=== PATIENT | male | born 1955 | race Caucasian/White ===

== ENCOUNTER 2017-08-08 18:56 | Inpatient (IN) | payer MEDICARE, MEDICAID ==
[~2017-08-08] VITALS: Ht 182.9 cm; Wt 76.4 kg
[~2017-08-08 18:56] MED LIST: MEDROL 4MG. DOSE4 MG PO; NAPROSYN500 M1 PO; NOMEDS; PHENERGAN 25MG.25 M1 PO
[2017-08-08 19:12] VITALS: BP 157/109
--- NOTE | 2017-08-08 19:40 | Emergency Room Report ---
History of Present Illness Time Seen by Armond Presenting Problem in Triage Pt arrived:Walked Presenting Problem:buring garbage this past monday and inhaled smoke, got chest pains at that time. dizziness, nausea and clamminess episodes since then has had 3 episodes of dizziness today. 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 N Clinical Suspician of Infection? N Mental Status: 1 - Regular (Normal Baseline) Sepsis Risk:Low Sepsis Risk Have you (or family members/close friends) recently traveled outside the [place]? N If Yes, where/when: Have you had exposure to infectious disease within the past month? N TB? Other? Specify: Source patient, RN notes reviewed Exam Limitations no limitations Comment Pt comes to the ED with the history of burning brush on Monday and started having severe chest pain and broke out with sweat. Comes to the ED now with what appears to be a completed Inferior [place] with ST elevation in !!, !!!, and AVF with large q waves as well. He has had several episodes of dizziness over the weekend but no black out spells. He denies chest pain at this time. He smokes 1 ppd Cardiac Chest Pain Chest pain indicative of cardiac Yes ALLERGIES Coded Allergies: No Known Allergies (04/16/17) Home Medications Active Scripts Promethazine Hydrochloride (Phenergan 25MG Tab) 25 MG PO Q4-6H PRN #12 Prov: 10/23/11 Naproxen (Naprosyn 500MG Tab) 500 MG PO BID #30 TAB Prov: 04/16/17 Methylprednisolone (Medrol Dose Francesco) 4 MG PO UD #1 FRANCESCO Prov: 04/16/17 Reported Medications No Home Medications (NO HOME MEDICATIONS) History Medical History General CAD? No Angina: No [place]: No Hypertension? No Hyperlipidemia? No CHF? No DVT? No PE? No COPD? No Asthma? No Anemia? No GERD? No Gastric ulcers? No GI Bleed? No Hernia? No Thyroid Problems? No Hypothyroidism? No CVA? No Seizures? No Diabetes? No Renal Insuffiency? No End Stage Renal Disease? No UTI? No Stones? No BPH? No GB Disease: No Nephritic Syndrome? No Asplenia? No Hepatitis? No Sickle Cell Disease? No Arthritis? No Migraines? No Cataracts? No Glaucoma? No MRSA? No HIV? No TB? No Anxiety? No Depression? No Cancer? No Immunization Hx Ped.Immunizations UTD No DT/Tetanus NOT SURE Surgical Hx Previous Surgery?Y NECK X 2 R ANKLE Social History Smoking Hx Smoker: Current Every Day Smoker Tobacco: Yes Type Cigarettes Packs/day < 1 Pack Alcohol Alcohol: No Review of Systems All Other Systems Reviewed and Negative Constitutional see HPI Cardiovascular see HPI Psychiatric/Neurological see HPI Physical Exam Vital Signs Vital Signs Date Time Temp Pulse Resp B/P Pulse O2 O2 Flow FiO2 Ox Delivery Rate 08/08 1912 99.0 86 28 157/109 96 General Appearance normal appearance, WD/WN, mild distress Neck no bruits heard by me Respiratory Status No: respiratory distress. Lung Sounds bilateral: rhonchi. 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 No Results/Orders Laboratory Tests 08/08/171929: Creatine Kinase Pending, CK-MB (CK-2) Rel Index Pending, CK and CKMB Interp Pending, Troponin I Pending Current Medication Orders Sig/Alex Start time Last Medication Dose Route Stop Time Status Admin Heparin Sodium 7,000 UNITS ONCE ONE 08/08 1945 AC (Porcine) IV 08/08 1946 Heparin Sodium/ 500 ML ONCE ONE 08/08 1945 AC Dextrose IV 08/09 1634 Aspirin 324 MG ONCE ONE 08/08 1930 DC PO 08/08 1931 Heparin Sodium 0 .STK-MED ONE 08/08 1930 DC (Porcine) .ROUTE Heparin Sodium/ 500 ML .STK-MED ONE 08/08 1930 DC Dextrose IV Metoprolol Tartrate 5 MG ONCE ONE 08/08 1930 CAN IV 08/08 1931 Prasugrel 60 MG ONCE ONE 08/08 1930 DC PO 08/08 1931 Metoprolol Tartrate 0 .STK-MED ONE 08/08 1925 DC IV Aspirin 0 .STK-MED ONE 08/08 1922 DC .ROUTE Prasugrel 0 .STK-MED ONE 08/08 1922 DC PO Orders Procedure Date/time Status CHEST-PORTABLE 08/08 1934 Active ELECTROCARDIOGRAM REQUEST 08/08 1922 Active CARDIAC ENZYMES 08/08 1922 Active 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 Naidu by Dr. Flores with consult to Dr. Robles Discharge Counseling Counseled pt/family regarding diagnosis, test results, R/B of controlled subst., medications/RX, follow up needs ED Critical Care Critical Care Yes Time spent 30-74 min Vital system(s) involved: Circulatory Failure I was present at bedside for Coordinating pt's care, Interpreting EKGs/Strips , During my initial exam, Reviewing old records, Discussing pt condition, For re -examinations If Critical Care minutes are documented, the time involved in the performance of seperately reportable procedures was not counted toward critical care time documented. I directly delivered medical care to this critically ill and/or injured patient. Timely evaluation and treatment was necessary to address the significant organ system(s) dysfunction present in this patient. at 1940
--- NOTE | 2017-08-08 19:40 | Emergency Room Report ---
History of Present Illness Time Seen by Armond Presenting Problem in Triage Pt arrived:Walked Presenting Problem:buring garbage this past monday and inhaled smoke, got chest pains at that time. dizziness, nausea and clamminess episodes since then has had 3 episodes of dizziness today. 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 N Clinical Suspician of Infection? N Mental Status: 1 - Regular (Normal Baseline) Sepsis Risk:Low Sepsis Risk Have you (or family members/close friends) recently traveled outside the [place]? N If Yes, where/when: Have you had exposure to infectious disease within the past month? N TB? Other? Specify: Source patient, RN notes reviewed Exam Limitations no limitations Comment Pt comes to the ED with the history of burning brush on Monday and started having severe chest pain and broke out with sweat. Comes to the ED now with what appears to be a completed Inferior [place] with ST elevation in !!, !!!, and AVF with large q waves as well. He has had several episodes of dizziness over the weekend but no black out spells. He denies chest pain at this time. He smokes 1 ppd Cardiac Chest Pain Chest pain indicative of cardiac Yes ALLERGIES Coded Allergies: No Known Allergies (04/16/17) Home Medications Active Scripts Promethazine Hydrochloride (Phenergan 25MG Tab) 25 MG PO Q4-6H PRN #12 Prov: 10/23/11 Naproxen (Naprosyn 500MG Tab) 500 MG PO BID #30 TAB Prov: 04/16/17 Methylprednisolone (Medrol Dose Francesco) 4 MG PO UD #1 FRANCESCO Prov: 04/16/17 Reported Medications No Home Medications (NO HOME MEDICATIONS) History Medical History General CAD? No Angina: No [place]: No Hypertension? No Hyperlipidemia? No CHF? No DVT? No PE? No COPD? No Asthma? No Anemia? No GERD? No Gastric ulcers? No GI Bleed? No Hernia? No Thyroid Problems? No Hypothyroidism? No CVA? No Seizures? No Diabetes? No Renal Insuffiency? No End Stage Renal Disease? No UTI? No Stones? No BPH? No GB Disease: No Nephritic Syndrome? No Asplenia? No Hepatitis? No Sickle Cell Disease? No Arthritis? No Migraines? No Cataracts? No Glaucoma? No MRSA? No HIV? No TB? No Anxiety? No Depression? No Cancer? No Immunization Hx Ped.Immunizations UTD No DT/Tetanus NOT SURE Surgical Hx Previous Surgery?Y NECK X 2 R ANKLE Social History Smoking Hx Smoker: Current Every Day Smoker Tobacco: Yes Type Cigarettes Packs/day < 1 Pack Alcohol Alcohol: No Review of Systems All Other Systems Reviewed and Negative Constitutional see HPI Cardiovascular see HPI Psychiatric/Neurological see HPI Physical Exam Vital Signs Vital Signs Date Time Temp Pulse Resp B/P Pulse O2 O2 Flow FiO2 Ox Delivery Rate 08/08 1912 99.0 86 28 157/109 96 General Appearance normal appearance, WD/WN, mild distress Neck no bruits heard by me Respiratory Status No: respiratory distress. Lung Sounds bilateral: rhonchi. 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 No Results/Orders Laboratory Tests 08/08/171929: Creatine Kinase Pending, CK-MB (CK-2) Rel Index Pending, CK and CKMB Interp Pending, Troponin I Pending Current Medication Orders Sig/Alex Start time Last Medication Dose Route Stop Time Status Admin Heparin Sodium 7,000 UNITS ONCE ONE 08/08 1945 AC (Porcine) IV 08/08 1946 Heparin Sodium/ 500 ML ONCE ONE 08/08 1945 AC Dextrose IV 08/09 1634 Aspirin 324 MG ONCE ONE 08/08 1930 DC PO 08/08 1931 Heparin Sodium 0 .STK-MED ONE 08/08 1930 DC (Porcine) .ROUTE Heparin Sodium/ 500 ML .STK-MED ONE 08/08 1930 DC Dextrose IV Metoprolol Tartrate 5 MG ONCE ONE 08/08 1930 CAN IV 08/08 1931 Prasugrel 60 MG ONCE ONE 08/08 1930 DC PO 08/08 1931 Metoprolol Tartrate 0 .STK-MED ONE 08/08 1925 DC IV Aspirin 0 .STK-MED ONE 08/08 1922 DC .ROUTE Prasugrel 0 .STK-MED ONE 08/08 1922 DC PO Orders Procedure Date/time Status CHEST-PORTABLE 08/08 1934 Active ELECTROCARDIOGRAM REQUEST 08/08 1922 Active CARDIAC ENZYMES 08/08 1922 Active 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 Naidu by Dr. Flores with consult to Dr. Robles Discharge Counseling Counseled pt/family regarding diagnosis, test results, R/B of controlled subst., medications/RX, follow up needs ED Critical Care Critical Care Yes Time spent 30-74 min Vital system(s) involved: Circulatory Failure I was present at bedside for Coordinating pt's care, Interpreting EKGs/Strips , During my initial exam, Reviewing old records, Discussing pt condition, For re -examinations If Critical Care minutes are documented, the time involved in the performance of seperately reportable procedures was not counted toward critical care time documented. I directly delivered medical care to this critically ill and/or injured patient. Timely evaluation and treatment was necessary to address the significant organ system(s) dysfunction present in this patient. at 1940
--- NOTE | 2017-08-08 19:43 | Emergency Room Report ---
History of Present Illness Time Seen by 1929 Presenting Problem in Triage Pt arrived:Walked Presenting Problem:buring garbage this past monday and inhaled smoke, got chest pains at that time. dizziness, nausea and clamminess episodes since then has had 3 episodes of dizziness today. 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 N Clinical Suspician of Infection? N Mental Status: 1 - Regular (Normal Baseline) Sepsis Risk:Low Sepsis Risk Have you (or family members/close friends) recently traveled outside the [place]? N If Yes, where/when: Have you had exposure to infectious disease within the past month? N TB? Other? Specify: ALLERGIES Coded Allergies: No Known Allergies (04/16/17) Home Medications Active Scripts Promethazine Hydrochloride (Phenergan 25MG Tab) 25 MG PO Q4-6H PRN #12 Prov: 10/23/11 Naproxen (Naprosyn 500MG Tab) 500 MG PO BID #30 TAB Prov: 04/16/17 Methylprednisolone (Medrol Dose Analia) 4 MG PO UD #1 ANALIA Prov: 04/16/17 Reported Medications No Home Medications (NO HOME MEDICATIONS) History Medical History General CAD? No Angina: No [place]: No Hypertension? No Hyperlipidemia? No CHF? No DVT? No PE? No COPD? No Asthma? No Anemia? No GERD? No Gastric ulcers? No GI Bleed? No Hernia? No Thyroid Problems? No Hypothyroidism? No CVA? No Seizures? No Diabetes? No Renal Insuffiency? No End Stage Renal Disease? No UTI? No Stones? No BPH? No GB Disease: No Nephritic Syndrome? No Asplenia? No Hepatitis? No Sickle Cell Disease? No Arthritis? No Migraines? No Cataracts? No Glaucoma? No MRSA? No HIV? No TB? No Anxiety? No Depression? No Cancer? No Immunization Hx Ped.Immunizations UTD No DT/Tetanus NOT SURE Surgical Hx Previous Surgery?Y NECK X 2 R ANKLE Social History Smoking Hx Smoker: Current Every Day Smoker Tobacco: Yes Type Cigarettes Packs/day < 1 Pack Alcohol Alcohol: No Review of Systems All Other Systems Reviewed and Negative Physical Exam Vital Signs Vital Signs Date Time Temp Pulse Resp B/P Pulse O2 O2 Flow FiO2 Ox Delivery Rate 08/08 1912 99.0 86 28 157/109 96 General Appearance mild distress Respiratory Status No: respiratory distress. 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 No Results/Orders Laboratory Tests 08/08/171929: Creatine Kinase Pending, CK-MB (CK-2) Rel Index Pending, CK and CKMB Interp Pending, Troponin I Pending 08/08/171929: Sodium Pending, Potassium Pending, Chloride Pending, Carbon Dioxide Pending, BUN Pending, Creatinine Pending, Estimated Creat Clear Pending, Estimated GFR (MDRD) Pending, Glucose Pending, Calcium Pending, Total Bilirubin Pending, AST Pending, ALT Pending, Alkaline Phosphatase Pending, Total Protein Pending, Albumin Pending, Globulin Pending, Albumin/Globulin Ratio Pending, APTT Pending, WBC Pending, RBC Pending, Hgb Pending, Hct Pending, MCV Pending, RDW Pending, Plt Count Pending, Gran % Pending, Gran # Pending, Lymphocytes % Pending, Eosinophils % Pending, Basophils % Pending, Lymphocytes # Pending, Eosinophils # Pending, Basophils # Pending, PUBS MCHC Pending, MCH Pending Current Medication Orders Sig/Alex Start time Last Medication Dose Route Stop Time Status Admin Heparin Sodium 7,000 UNITS ONCE ONE 08/08 1945 AC 08/08 (Porcine) IV 08/08 Heparin Sodium/ 500 ML ONCE ONE 08/08 1945 AC 08/08 Dextrose IV 08/09 1634 1938 Metoprolol Tartrate 25 MG ONCE ONE 08/08 1945 AC NG 08/08 1946 Nitroglycerin/ 250 ML .Q25H 08/08 1945 AC Dextrose IV Ondansetron HCl 0 .STK-MED ONE 08/08 1943 DC .ROUTE Aspirin 324 MG ONCE ONE 08/08 1930 DC 08/08 PO 08/08 Heparin Sodium 0 .STK-MED ONE 08/08 1930 DC (Porcine) .ROUTE Heparin Sodium/ 500 ML .STK-MED ONE 08/08 1930 DC Dextrose IV Metoprolol Tartrate 5 MG ONCE ONE 08/08 1930 CAN IV 08/08 1931 Prasugrel 60 MG ONCE ONE 08/08 1930 DC 08/08 PO 08/08 Metoprolol Tartrate 0 .STK-MED ONE 08/08 1925 DC IV Aspirin 0 .STK-MED ONE 08/08 1922 DC .ROUTE Prasugrel 0 .STK-MED ONE 08/08 1922 DC PO Orders Procedure Date/time Status PARTIAL THROMBOPLASTIN TIME 08/08 1941 Active CBC WITH AUTO DIFF 08/08 1940 Active CHEM 12 PROFILE 08/08 1940 Active CHEST-PORTABLE 08/08 1934 Active ELECTROCARDIOGRAM REQUEST 08/08 1922 Active CARDIAC ENZYMES 08/08 1922 Active Departure Departure Time of Disposition 1943 Disposition Still a Patient Clinical Impression Primary Impression: STEMI (ST elevation myocardial infarction) Qualifiers: Involved coronary artery: right coronary artery Qualified Code: I21.11 - ST elevation (STEMI) myocardial infarction involving right coronary artery Condition STABLE Additional Instructions Admitted to Acute Bed to Dr. Naidu by Dr. Flores with consult to Dr. Robles ED Critical Care Critical Care Yes Time spent 30-74 min Vital system(s) involved: Circulatory Failure I was present at bedside for Coordinating pt's care, Interpreting EKGs/Strips , During my initial exam, Reviewing lab results, Reviewing old records, Discussing pt condition, For re-examinations If Critical Care minutes are documented, the time involved in the performance of seperately reportable procedures was not counted toward critical care time documented. I directly delivered medical care to this critically ill and/or injured patient. Timely evaluation and treatment was necessary to address the significant organ system(s) dysfunction present in this patient. at 1945
[2017-08-08 19:46] LABS: LYMPH # 2.6 K/mm3 (0.7-4.5); LYMPH % 24.7 % (10-50)
[2017-08-08 19:55] LABS: HEMOGLOBIN 14.2 g/dL (14.1-18.0)
[2017-08-08] MEDS ORDERED: NOMEDS XX (20:01)
[2017-08-08 22:10] VITALS: BP 130/98
[2017-08-08 22:15] VITALS: BP 130/98
[2017-08-08] MEDS ORDERED: ALKA-SELTZER H1 EAC1 PO (22:47)
[2017-08-09] VITALS (33 sets, daily range): BP systolic 114–167; BP diastolic 62–106
--- NOTE | 2017-08-09 05:44 | RADIOLOGY REPORT PS360 ---
CHEST-PORTABLE HISTORY: CHEST PAIN ORDERING PHYSICIAN: Nael Naidu MD PATIENT AGE: 61 years COMPARISON: 10/23/2011 FINDINGS: Overlying artifact. Normal heart size. No obvious lobar consolidation or collapse. No acute bony anomalies. No evidence of pneumothorax. IMPRESSION: Overlying artifact, no acute finding
[2017-08-09 06:37] LABS: LYMPH # 2.4 K/mm3 (0.7-4.5); LYMPH % 29.6 % (10-50)
[2017-08-09 06:43] LABS: HEMOGLOBIN 12.6 g/dL (14.1-18.0)
--- NOTE | 2017-08-09 07:25 | PHARMACY CLINIC NOTE ---
Patient Demographics Patient Demographics Admission date: 08/08/17 Date: 08/09/17 Time: 07 Allergies Coded Allergies: No Known Allergies (04/16/17) HEIGHT- FT: 6 IN: 0.00 K.042 VTE General Information Labs: Laboratory Tests 08/09 08/08 0540 1930 Coagulation PT (9.4 - 11.8 SECONDS) 10.7 INR (0.9 - 1.1) 0.99 APTT (23.6 - 34.0 SECONDS) 51.6 *H 29.1 Hematology Hgb (14.1 - 18.0 g/dL) 12.6 L 14.2 Hct (42.0 - 52.0 %) 37.5 L 42.2 Plt Count (142 - 424 K/mm3) 138 L 165 Disclaimer The following section includes nursing documentation that has been pulled in for pharmacy review. Patient's VTE score: 2 Patient's VTE Risk: VERY LOW RISK Clinical trial participant? No VTE prophylaxis NQF [id number] VTE prophylaxis ordered? Yes Type of prophylaxis/treatment: Heparin at 0770
--- NOTE | 2017-08-09 07:54 | CONSULT NOTE ---
Standard Demographics Patient Demo Date of Consultation: 08/09/17 Referring Provider: Mariel Naidu MD Reason for Consultation: SUBACUTE CT PRIMARY DIAGNOSIS: SUBACUTE CT Problem list Problem list: 1. Tobacco use, one pack per day, greater than 50 years 2. Hypertension, on no medications for several years 3. History of hyperlipidemia 4. Question will family history of coronary disease in his mother 5. History of traumatic injury to neck requiring surgical correction A. Chronic RIGHT arm and shoulder discomfort History of present illness: History of present illness: 61-year-old white male admitted through the emergency department last evening for subacute myocardial infarction. 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 Symptoms at that time with resolve after a few minutes of rest. Progressively the symptoms have occurred with less and less activity since then and included difficulty breathing and yesterday he began having episodes of near syncope. This is the reason that he came to the ER for further evaluation. Electrocardiogram in the ER revealed Q waves inferiorly, lab work revealed elevated troponins and subsequently patient was admitted for further evaluation and treatment. He was started on Effient, metoprolol and heparin drip. Symptoms have resolved and patient feels better this morning. Telemetry this a.m. revealed a 17 beat run of nonsustained ventricular tachycardia that is about 210 bpm. Patient was asymptomatic during this time. Cardiology consulted for evaluation and recommendations. Past Medical History: General: Hypertension No CVA No Seizures No TB No COPD No Asthma No Diabetes No Angina No CT No Hyperlipidemia No Urinary No Cancer No Rheumatic H.D. No Ulcers No MRSA No GB Disease No Past Surgical HX: Previous Surgery?Y NECK X 2 R ANKLE Allergies Coded Allergies: No Known Allergies (04/16/17) Home medications: Reported Medications Calcium Carbonate/Simethicone (Yaneli-[place] Heartburn+Gas) 1 EACH PO BID PRN GAS No Home Medications (NO HOME MEDICATIONS) No Home Medications (NO HOME MEDICATIONS) 1 EACH XX ONCE Current Medications: Current Medications Aspirin 81 MG DAILY PO (CANr) Aspirin 81 MG DAILY PO (UNV) Potassium Chloride 40 MEQ BID PO (UNV) Prasugrel 10 MG DAILY PO (UNV) Fentanyl Citrate 25 MCG PRN PRN IV (UNV) Fentanyl Citrate 50 MCG PRN PRN IV (UNV) Flumazenil 0.2 MG PRN PRN IV (UNV) Heparin Sodium (Beef Lung) 5,000 UNITS PRN PRN IV (UNV) Heparin Sodium/Sodium Chloride 3,000 UNITS PRN PRN IV (UNV) Lidocaine HCl 20 ML ONCE ONE IJ (UNV) Midazolam HCl 1 MG PRN PRN IV (UNV) Midazolam HCl 1 MG PRN PRN IV (UNV) Naloxone HCl 0.4 MG [id number] PRN IV (UNV) Nitroglycerin 800 MCG PRN PRN IV (UNV) Verapamil HCl 5 MG PRN PRN IV (UNV) Aspirin 0 .STK-MED ONE .ROUTE (DC) Potassium Chloride 0 .STK-MED ONE PO (DC) Metoprolol Tartrate 25 MG BID PO (UNV) Sodium Chloride 10 ML PRN PRN IV Sodium Chloride 10 ML PRN PRN IV Heparin Sodium/Dextrose 500 ML .[id number] IV (UNV) Nicotine 21 MG DAILYP PRN TD (UNV) Nitroglycerin/Dextrose 250 ML .Q25H IV (UNV) Promethazine HCl 25 MG Q4HP PRN IV (UNV) Sodium Chloride 1,000 ML .Q25H IV (UNV) Sodium Chloride 25 ML PRN PRN IV (UNV) Ondansetron HCl 4 MG ONCE ONE IV (DC) Metoprolol Tartrate 0 .STK-MED ONE .ROUTE (DC) Nitroglycerin/Dextrose 250 ML .STK-MED ONE IV (DC) Heparin Sodium (Porcine) 7,000 UNITS ONCE ONE IV (DC) Heparin Sodium/Dextrose 500 ML ONCE ONE IV Metoprolol Tartrate 25 MG ONCE ONE NG (DC) Nitroglycerin/Dextrose 250 ML .Q25H IV Ondansetron HCl 0 .STK-MED ONE .ROUTE (DC) Aspirin 324 MG ONCE ONE PO (DC) Heparin Sodium (Porcine) 0 .STK-MED ONE .ROUTE (DC) Heparin Sodium/Dextrose 500 ML .STK-MED ONE IV (DC) Metoprolol Tartrate 5 MG ONCE ONE IV (CAN) Prasugrel 60 MG ONCE ONE PO (DC) Metoprolol Tartrate 0 .STK-MED ONE IV (DC) Aspirin 0 .STK-MED ONE .ROUTE (DC) Prasugrel 0 .STK-MED ONE PO (DC) Immunization HX Ped.Immunizations UTD No DT/Tetanus NOT SURE Pneumonia Never Had TB Test in last year No Family history Family HX Family Hx Insignificant No Diabetes Yes CAD Yes Hypertension Yes Hyperlipidemia No Cancer No TB No Social Hx: Smoking HX Tobacco Yes Type Cigarettes Packs/day < 1 PACK Alcohol Alcohol: No Hx of Drug Use Drug Use? No Review of systems: Constitutional see HPI, weakness. Respiratory shortness of breath, SOB with excertion. Cardiovascular see HPI, chest pain Gastrointestinal/Abdominal No no symptoms reported Genitourinary No: no symptoms reported. Musculoskeletal neck pain. Neurological No: no symptoms reported. Exam: Admission Vital Signs: 1ST Vital Signs Result Date Time Pulse Ox 96 08/08 1912 B/P 157/109 08/08 1912 Temp 99.0 08/08 1912 Pulse 86 08/08 1912 Resp 28 08/08 1912 O2 Delivery ROOM AIR 08/08 2210 Last Vital Signs: Vital Signs Result Date Time Temp 98.4 08/09 0745 Pulse Ox 96 08/09 0600 B/P 139/96 08/09 0600 O2 Delivery ROOM AIR 08/09 0600 Pulse 69 08/09 0600 Resp 18 08/09 0400 Exam General appearance: alert, awake, no acute distress Neck: no carotid bruit, no JVD Cardiovascular: regular rate & rhythm, no murmur Respiratory: DECREASED BREATH SOUNDS BILATERALLY WITH SOME RHONCHI THAT CLEARS WITH COUGHING. DOES NOT HAVE ANY WHEEZING OR RALES. ABD: soft, no tenderness Extremities: moves all, no peripheral edema Neuro: alert, intact, oriented Laboratory data: Laboratory Tests 08/09/17 0540: Triglycerides 68, Cholesterol 128, LDL Cholesterol 79.4, VLDL Cholesterol 13.6, HDL Cholesterol 35.0 L 08/09/17 0540: Sodium 135 L, Potassium 3.2 L, Chloride 100, Carbon Dioxide 32, BUN 11, Creatinine 0.9, Estimated Creat Clear 91, Estimated GFR (MDRD) 86, Glucose 110 H, Calcium 8.5, Total Bilirubin 0.5, AST 68 H, ALT 24, Alkaline Phosphatase 73, Total Protein 6.5, Albumin 3.0 L, Globulin 3.5 H, Albumin/Globulin Ratio 0.9 L, PT 10.7, INR 0.99, APTT 51.6 *H, WBC 8.0, RBC 3.82 L, Hgb 12.6 L, Hct 37.5 L, MCV 98.0 H, RDW 13.3, Plt Count 138 L, MPV 8.0, Gran % 60.8, Gran # 4.8, Lymphocytes % 29.6, Monocytes % 6.8, Eosinophils % 2.3, Basophils % 0.5, Lymphocytes # 2.4, Monocytes # 0.5, Eosinophils # 0.2, Basophils # 0.0, PUBS MCHC 33.4, MCH 32.8 H 08/08/17 1930: Creatine Kinase 500 H, CK-MB (CK-2) Rel Index 3.0, CK and CKMB Interp 15.1 *H, Troponin I 17.17 H 08/08/171929: Sodium 124 L, Potassium 3.1 L, Chloride 95 L, Carbon Dioxide 35 H, BUN 14, Creatinine 1.0, Estimated Creat Clear 93, Estimated GFR (MDRD) 76, Glucose 118 H, Calcium 9.1, Total Bilirubin 0.3, AST 94 H, ALT 25, Alkaline Phosphatase 69, Total Protein 7.3, Albumin 3.5, Globulin 3.8 H, Albumin/Globulin Ratio 0.9 L, APTT 29.1, WBC 10.5, RBC 4.31 L, Hgb 14.2, Hct 42.2, MCV 97.9 H, RDW 13.2, Plt Count 165, MPV 7.7, Gran % 65.8, Gran # 6.9, Lymphocytes % 24.7, Monocytes % 7.5 , Eosinophils % 1.4, Basophils % 0.5, Lymphocytes # 2.6, Monocytes # 0.8, Eosinophils # 0.2, Basophils # 0.1, PUBS MCHC 33.4, MCH 32.7 H Plan: Assessment: 1. Subacute myocardial infarction with nonsustained ventricular tachycardia. Continue aspirin, Effient and metoprolol therapy. Patient will be taken to the r and d lab technician this morning. 2. Tobacco use, cessation recommended. 3. Hypokalemia, start replacement therapy 4. Hypertension 5. Hyperlipidemia, start statin therapy Recommendations: See above. at 0754
--- NOTE | 2017-08-09 09:26 | HISTORY AND PHYSICAL REPORT ---
See Addendum History and Physical ([facility]CA) Date of admission: 08/08/17 Chief complaint: chest pain ; near syncopal episodes History: History of Present Illness: 61-year-old white male admitted through the emergency department last evening for subacute myocardial infarction. 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 Symptoms at that time with resolve after a few minutes of rest. Progressively the symptoms have occurred with less and less activity since then and included difficulty breathing. Yesterday he began having episodes of near syncope. This is the reason that he came to the ER for further evaluation. Electrocardiogram in the ER revealed Q waves inferiorly; lab work revealed elevated troponins. Subsequently patient was admitted for further evaluation and treatment. He was started on Effient, metoprolol and heparin drip. Symptoms have resolved and patient feels better this morning. Telemetry this a.m. revealed a 17 beat run of nonsustained ventricular tachycardia that is about 210 bpm. Patient was asymptomatic during this time. Cardiology consulted for evaluation and recommendations. Past Medical History: Medical History: CAD? No Angina: No OK: No Hypertension? No Hyperlipidemia? No CHF? No DVT? No PE? No COPD? No Asthma? No Anemia? No GERD? No Gastric ulcers? No GI Bleed? No Hernia? No Thyroid Problems? No Hypothyroidism? No CVA? No Seizures? No Diabetes? No Renal Insuffiency? No UTI? No Stones? No BPH? No GB Disease: No Nephritic Syndrome? No Asplenia? No Hepatitis? No Sickle Cell Disease? No Arthritis? No Migraines? No Cataracts? No Glaucoma? No MRSA? No HIV? No TB? No Anxiety? No Depression? No Cancer? No Surgical history: Previous Surgery?Y NECK X 2 R ANKLE Medications: Reported Medications Calcium Carbonate/Simethicone (Yaneli-[place] Heartburn+Gas) 1 EACH PO BID PRN GAS No Home Medications (NO HOME MEDICATIONS) 1 EACH XX ONCE Allergies: Coded Allergies: No Known Allergies (04/16/17) Family History: Family history: Postive for: CAD, DM. Social History: Smoking Hx Tobacco: Yes Smoker: Current Every Day Smoker Type: Cigarettes Packs/day: 1 1/2 - 2 Packs Are you exposed to second hand Yes Alcohol: Alcohol: No Hx of Drug Use: Drug Use? No Review of Systems: Cardiovascular Positive for: AVILEZ, chest pain, palpitations. No: edema. Respiratory Positive for: shortness of air, productive cough (sputum). No: hemoptysis. GI Positive for: GERD. No: abdominal pain, constipation, diarrhea, hematemeis, hematochezia, melena, vomitting. (male) No: hematuria. Neurological Positive for: dizziness, light headed. No: seizure, syncope. Musculoskeletal Positive for: extremity pain, joint pain. Physical Exam: Vital signs: 1ST Vital Signs Result Date Time Pulse Ox 96 08/08 1912 B/P 157/109 08/08 1912 Temp 99.0 08/08 1912 Pulse 86 08/08 1912 Resp 28 08/08 1912 O2 Delivery ROOM AIR 08/08 2210 Exam: General appearance: alert, no acute distress, fully bearded Eyes: anicteric ENT: tongue coated Neck: no carotid bruit, full range of motion Cardiovascular: regular rate & rhythm, run of VT this AM Respiratory: diminished BS posteriorly ABD: non-distended, soft, no tenderness, bowel sounds present Extremities: moves all, no peripheral edema, no calf tenderness Neuro: alert, oriented Lab data: Labs: Laboratory Tests 08/09/17 0540: Triglycerides 68, Cholesterol 128, LDL Cholesterol 79.4, VLDL Cholesterol 13.6, HDL Cholesterol 35.0 L 08/09/17 0540: Sodium 135 L, Potassium 3.2 L, Chloride 100, Carbon Dioxide 32, BUN 11, Creatinine 0.9, Estimated Creat Clear 91, Estimated GFR (MDRD) 86, Glucose 110 H, Calcium 8.5, Total Bilirubin 0.5, AST 68 H, ALT 24, Alkaline Phosphatase 73, Total Protein 6.5, Albumin 3.0 L, Globulin 3.5 H, Albumin/Globulin Ratio 0.9 L, PT 10.7, INR 0.99, APTT 51.6 *H, WBC 8.0, RBC 3.82 L, Hgb 12.6 L, Hct 37.5 L, MCV 98.0 H, RDW 13.3, Plt Count 138 L, MPV 8.0, Gran % 60.8, Gran # 4.8, Lymphocytes % 29.6, Monocytes % 6.8, Eosinophils % 2.3, Basophils % 0.5, Lymphocytes # 2.4, Monocytes # 0.5, Eosinophils # 0.2, Basophils # 0.0, PUBS MCHC 33.4, MCH 32.8 H 08/08/17 1930: Creatine Kinase 500 H, CK-MB (CK-2) Rel Index 3.0, CK and CKMB Interp 15.1 *H, Troponin I 17.17 H 08/08/170: Sodium 124 L, Potassium 3.1 L, Chloride 95 L, Carbon Dioxide 35 H, BUN 14, Creatinine 1.0, Estimated Creat Clear 93, Estimated GFR (MDRD) 76, Glucose 118 H, Calcium 9.1, Total Bilirubin 0.3, AST 94 H, ALT 25, Alkaline Phosphatase 69, Total Protein 7.3, Albumin 3.5, Globulin 3.8 H, Albumin/Globulin Ratio 0.9 L, APTT 29.1, WBC 10.5, RBC 4.31 L, Hgb 14.2, Hct 42.2, MCV 97.9 H, RDW 13.2, Plt Count 165, MPV 7.7, Gran % 65.8, Gran # 6.9, Lymphocytes % 24.7, Monocytes % 7.5 , Eosinophils % 1.4, Basophils % 0.5, Lymphocytes # 2.6, Monocytes # 0.8, Eosinophils # 0.2, Basophils # 0.1, PUBS MCHC 33.4, MCH 32.7 H Radiology results: Results: 08/08/17 CXR IMPRESSION: Overlying artifact, no acute finding Diagnosis(es): 1. Acute ST elevation myocardial infarction (STEMI) Plan: Cardiac cath this AM; cardiology to follow at 0926 at 1733
--- NOTE | 2017-08-09 11:22 | RADIOLOGY REPORT PS360 ---
CARDIAC CATHETERIZATION DATE OF CATHETERIZATION:08/09/2017 10:55 AM PROCEDURES: 1. Left heart catheterization 2. Left ventriculogram 3. Selective coronary angiogram 4. Drug-eluting stent deployment to the ostial proximal right coronary artery followed by drug-eluting stent deployment to the mid right coronary artery INDICATION FOR TEST: 1. ST elevation myocardial infarction 2. Coronary artery disease Informed consent was obtained prior to the procedure. COMPLICATIONS: None ESTIMATED BLOOD LOSS: Less than 10 ml. TECHNIQUE: One percent lidocaine used to anesthetize the right anterior aspect of the wrist. The right radial artery was accessed via the Seldinger technique. A 6 Setswana sheath was placed in the right radial artery. 2.5 mg of verapamil, 800 mcg of nitroglycerin and 5000 U Heparin were given through the arterial sheath. A dexterity trap catheter was used to perform left heart catheterization left ventriculogram and selective coronary angiography. At the end of the diagnostic angiogram and additional 2500 units of heparin was administered intravenously giving an ACT of 269 seconds. An additional 3000 units of heparin was administered intravenously. An [place] right guide catheter was used intubate the right coronary artery and a BMW wire was used to traverse the stenosis. A 3 mm x 18 mm resolute [place] stent was deployed in the ostial proximal right coronary artery at 22 antonio reducing the severe stenosis to 0%. An additional 3 mm x 22 mm resolute Sergio stent was placed in the mid right coronary artery and deployed at 22 antonio reducing the severe 90% stenosis to 0%. ADRIAN I Flow was present at the beginning of the procedure with ADRIAN-3 flow and of the procedure. At the end of the procedure and ACT was measured at 395 seconds. The sheath was removed good hemostasis was achieved using TR banding patient was transferred to the postop holding area in stable condition ANGIOGRAPHIC RESULTS: 1. The left main artery has a distal 30% stenosis 2. The left anterior descending artery has proximal 20-30% stenoses and mid vessel 30% stenoses. The first diagonal artery has a proximal 40% stenosis. 3. The circumflex artery is a co-dominant vessel and has an ostial 90% stenosis followed by mid vessel 80% stenoses. The first obtuse marginal artery has 30% stenoses while the second obtuse marginal artery has a proximal 80-90% stenosis and a 2.25 mm vessel 4. The right coronary artery is condominant yet still a large vessel and has ostial proximal 99% subtotally occlusion followed by a mid vessel 90% stenosis 5. The GAMEZ ventriculogram reveals preserved at 60% 6. The left ventricular end-diastolic pressure 15 mmHg IMPRESSION: 1. Severe 2 vessel coronary artery disease as described above 2. Successful stenting of the ostial proximal and mid codominant right coronary artery critical disease reduced to 0% with 2 drug-eluting stents 3. Persistent severe stenosis in the ostial and mid codominant circumflex artery and severe stenosis in the second obtuse marginal artery 4. Preserved ejection fraction 5. Normal to mildly elevated LVEDP PLAN: 1. Effient 10 mg daily followed by aspirin 81 mg daily 2. LDL less than 55 3. Carvedilol plus lisinopril 4. Avoidance of tobacco products 5. Cardiac rehabilitation 6. In 2 weeks I would recommend bring patient back to the [facility] and undergo stenting of the ostial circumflex artery and mid circumflex artery with possible intervention of the second obtuse marginal artery
--- NOTE | 2017-08-09 14:09 | PHARMACY CLINIC NOTE ---
Patient Demographics Patient Demographics Admission date: 08/08/17 Date: 08/09/17 Time: 1406 Allergies Coded Allergies: No Known Allergies (04/16/17) HEIGHT- FT: 6 IN: 0.00 K.042 Medication Indication Medication therapy: Heparin Current indication for use: STEMI Problem List 1. STEMI (ST elevation myocardial infarction) CVA: No Bleeding Troubles? No Kidney Disease? No [place]: Yes More? No Desired PTT range: 60-80 Seconds Pharmacy Heparin dosing labs Anticoag labs: Laboratory Tests 08/09 Coagulation PT (9.4 - 11.8 SECONDS) 10.7 INR (0.9 - 1.1) 0.99 APTT (23.6 - 34.0 SECONDS) 51.6 *H 29.1 Hematology Hgb (14.1 - 18.0 g/dL) 12.6 L 14.2 Hct (42.0 - 52.0 %) 37.5 L 42.2 Plt Count (142 - 424 K/mm3) 138 L 165 Pharmacist alert! If baseline PTT/INR not ordered, pharmacist must order! Order CBC w/auto diff weekly while on heparin! Obtain PTT with each rate change Q 6 hrs until 2 consecutive goal values then daily. Monitoring PHARMACY MONITORING 1 Date: 08/08/17 Time: 1934 PTT: 29.1 Infusion rate: 24 MLS/HR Notes: 7000 UNIT HEPARIN BOLUS PHARMACY MONITORING 2 Date: 08/09/17 Time: 539 PTT: 51.6 Infusion rate: 24 MLS/HR Notes: [id number] Core Measures Core Measures Is INR > or = to 2.0 at d/c? No Most recent lab results: Laboratory Tests 08/0940 1929 Coagulation PT (9.4 - 11.8 SECONDS) 10.7 INR (0.9 - 1.1) 0.99 APTT (23.6 - 34.0 SECONDS) 51.6 *H 29.1 Hematology Hgb (14.1 - 18.0 g/dL) 12.6 L 14.2 Hct (42.0 - 52.0 %) 37.5 L 42.2 Plt Count (142 - 424 K/mm3) 138 L 165 If INR was < than 2.0 why was therapy stopped? NO VTE Were warfarin and heparin started the same day? No If not, why? NO VTE at 1408
--- NOTE | 2017-08-09 14:09 | PHARMACY CLINIC NOTE ---
Patient Demographics Patient Demographics Admission date: 08/08/17 Date: 08/09/17 Time: 1406 Allergies Coded Allergies: No Known Allergies (04/16/17) HEIGHT- FT: 6 IN: 0.00 K.042 Medication Indication Medication therapy: Heparin Current indication for use: STEMI Problem List 1. STEMI (ST elevation myocardial infarction) CVA: No Bleeding Troubles? No Kidney Disease? No [place]: Yes More? No Desired PTT range: 60-80 Seconds Pharmacy Heparin dosing labs Anticoag labs: Laboratory Tests 08/09 Coagulation PT (9.4 - 11.8 SECONDS) 10.7 INR (0.9 - 1.1) 0.99 APTT (23.6 - 34.0 SECONDS) 51.6 *H 29.1 Hematology Hgb (14.1 - 18.0 g/dL) 12.6 L 14.2 Hct (42.0 - 52.0 %) 37.5 L 42.2 Plt Count (142 - 424 K/mm3) 138 L 165 Pharmacist alert! If baseline PTT/INR not ordered, pharmacist must order! Order CBC w/auto diff weekly while on heparin! Obtain PTT with each rate change Q 6 hrs until 2 consecutive goal values then daily. Monitoring PHARMACY MONITORING 1 Date: 08/08/17 Time: 1934 PTT: 29.1 Infusion rate: 24 MLS/HR Notes: 7000 UNIT HEPARIN BOLUS PHARMACY MONITORING 2 Date: 08/09/17 Time: 539 PTT: 51.6 Infusion rate: 24 MLS/HR Notes: [id number] Core Measures Core Measures Is INR > or = to 2.0 at d/c? No Most recent lab results: Laboratory Tests 08/0940 1929 Coagulation PT (9.4 - 11.8 SECONDS) 10.7 INR (0.9 - 1.1) 0.99 APTT (23.6 - 34.0 SECONDS) 51.6 *H 29.1 Hematology Hgb (14.1 - 18.0 g/dL) 12.6 L 14.2 Hct (42.0 - 52.0 %) 37.5 L 42.2 Plt Count (142 - 424 K/mm3) 138 L 165 If INR was < than 2.0 why was therapy stopped? NO VTE Were warfarin and heparin started the same day? No If not, why? NO VTE at 1401
[2017-08-10] VITALS (17 sets, daily range): BP systolic 105–151; BP diastolic 62–104
--- NOTE | 2017-08-10 08:14 | ACUTE CARE PROGRESS NOTE (QUA) ---
See Addendum Progress Notes Subjective Date 08/10/17 Time 0804 Note 61 yo WM in bed. Complains of neck pain with radiation into chest. Worse with deep breathing. Different type of pain than the pain associated with his DC presentation. Symptoms improved with heating pad and IV morphine. Cardiac enzymes drawn overnight due to the chest pain with expected elevated troponin after coronary manipulation. Objective Findings Last VS-Temp:97.6 B/P:135/83 Pulse:80 Resp:18 SaO2:95 ROOM AIR Last weight lbs:168 oz:8 K.43 Method:Bed Scales Exam General appearance: alert, awake Cardiovascular: regular rate and rhythm without appreciable murmur or gallop or rub. Respiratory: decreased breath sounds bilaterally with rhonchi appreciated Extremities: moves all, no peripheral edema Neuro: oriented, speech clear Reviewed: medications, vital signs, lab results Assessment/Plan Problem List 1. Acute ST elevation myocardial infarction (STEMI) Assessment/Plan: Inferior DC, s/p RCA ADRIÁN, on ASA and Effient. On statin, JOSE AELJANDRO and metoprolol. Qualifiers: Involved coronary artery: right coronary artery Qualified Code: I21.11 - ST elevation (STEMI) myocardial infarction involving right coronary artery 2. Tobacco use disorder 3. Cervical radiculopathy Patient condition Stable Plan: continue current care, Check echo to evaluate wall motion inferiorly and to evaluate for pericardial effusion in setting of STEMI. Repeat CXR due to rhonchi on exam Check EKG due to recurrent chest pain No additional treatment at this time. RE-evaluate after above. This inpt stay is expected to cross 2 MNs from start of care Yes at 0825
--- NOTE | 2017-08-10 08:14 | ACUTE CARE PROGRESS NOTE (QUA) ---
See Addendum Progress Notes Subjective Date 08/10/17 Time 0804 Note 61 yo WM in bed. Complains of neck pain with radiation into chest. Worse with deep breathing. Different type of pain than the pain associated with his MO presentation. Symptoms improved with heating pad and IV morphine. Cardiac enzymes drawn overnight due to the chest pain with expected elevated troponin after coronary manipulation. Objective Findings Last VS-Temp:97.6 B/P:135/83 Pulse:80 Resp:18 SaO2:95 ROOM AIR Last weight lbs:168 oz:8 K.43 Method:Bed Scales Exam General appearance: alert, awake Cardiovascular: regular rate and rhythm without appreciable murmur or gallop or rub. Respiratory: decreased breath sounds bilaterally with rhonchi appreciated Extremities: moves all, no peripheral edema Neuro: oriented, speech clear Reviewed: medications, vital signs, lab results Assessment/Plan Problem List 1. Acute ST elevation myocardial infarction (STEMI) Assessment/Plan: Inferior MO, s/p RCA ADRIÁN, on ASA and Effient. On statin, JOSE ALEJANDRO and metoprolol. Qualifiers: Involved coronary artery: right coronary artery Qualified Code: I21.11 - ST elevation (STEMI) myocardial infarction involving right coronary artery 2. Tobacco use disorder 3. Cervical radiculopathy Patient condition Stable Plan: continue current care, Check echo to evaluate wall motion inferiorly and to evaluate for pericardial effusion in setting of STEMI. Repeat CXR due to rhonchi on exam Check EKG due to recurrent chest pain No additional treatment at this time. RE-evaluate after above. This inpt stay is expected to cross 2 MNs from start of care Yes at 0825
--- NOTE | 2017-08-10 09:13 | ACUTE CARE PROGRESS NOTE (QUA) ---
See Addendum Progress Notes Subjective Date 08/10/17 Time 0750 Note Pt arouses easily to voice. He denies current pain, reports episode of left chest and neck pain overnight. He denies any SOB, states he still feels very weak. Objective Findings Laboratory Tests 08/10/17 0305: Creatine Kinase 158, CK-MB (CK-2) Rel Index 1.8, CK and CKMB Interp 2.8, Troponin I 12.37 H 08/09/17 1052: POC Activ Clotting Time 395 *H 08/09/17 1045: POC Activ Clotting Time 263 *H Vital Signs Date Time Temp Pulse Resp B/P Pulse O2 O2 Flow FiO2 Ox Delivery Rate 08/10 0700 80 18 135/83 95 ROOM AIR 08/10 0600 79 20 140/91 97 ROOM AIR 08/10 0500 79 20 110/74 97 ROOM AIR 08/10 0416 99 OXYGEN 2 08/10 0400 97.6 72 20 105/73 99 ROOM AIR 08/10 0359 24 08/10 0359 97.6 08/10 0307 24 08/10 0300 72 24 111/62 99 ROOM AIR 08/10 0230 98.0 76 20 138/80 97 08/10 0200 71 18 133/88 97 ROOM AIR 08/10 0100 72 18 127/90 92 ROOM AIR 08/10 0057 2 08/10 0057 96 ROOM AIR 08/10 0004 98.0 08/10 0000 98.0 68 20 125/86 97 ROOM AIR 08/09 2300 69 20 133/89 69 ROOM AIR 08/09 2200 75 20 125/86 98 ROOM AIR 08/09 2130 98.7 81 18 115/82 99 08/09 2100 79 18 130/90 96 ROOM AIR 08/09 2000 98.7 89 18 128/84 97 ROOM AIR 08/09 1933 98.7 08/09 1900 89 18 145/98 97 ROOM AIR 08/09 1745 73 18 156/98 99 08/09 1645 68 18 161/99 99 08/09 1600 98.6 73 18 156/98 99 08/09 1545 70 18 133/91 99 08/09 1445 65 18 146/89 100 08/09 1414 98.6 64 18 156/95 100 08/09 1345 62 18 167/99 100 08/09 1315 60 18 150/106 100 08/09 1245 59 18 140/89 99 08/09 1230 58 18 145/94 99 08/09 1215 60 18 153/98 98 08/09 1215 60 18 153/98 98 08/09 1200 98.0 66 18 135/90 99 08/09 1145 68 18 153/99 96 08/09 1143 62 20 144/98 08/09 1140 98.4 62 18 141/104 96 ROOM AIR 08/09 1138 98.4 62 20 144/98 96 08/09 1135 61 18 146/93 97 08/09 1130 75 18 155/62 91 08/09 1048 20 Last VS-Temp:97.6 B/P:135/83 Pulse:80 Resp:18 SaO2:95 ROOM AIR Last weight lbs:168 oz:8 K.43 Method:Bed Scales Exam General appearance: alert, awake, no acute distress Cardiovascular: regular rate & rhythm, normal peripheral pulses Respiratory: diminished throughout ABD: non-distended, no rebound, soft, no tenderness, no guarding, no organomegaly, no palpable mass, bowel sounds present Extremities: no peripheral edema, no calf tenderness Neuro: alert, oriented, speech clear, no focal deficit Reviewed: medications, vital signs, lab results, radiology report, consult note, nursing notes Assessment/Plan Problem List 1. Acute ST elevation myocardial infarction (STEMI) 2. Tobacco use disorder 3. Cervical radiculopathy Patient condition Guarded Plan: per cardiology - ECHO, CXR, EKG this morning. This inpt stay is expected to cross 2 MNs from start of care Yes at 0913 at 1109
--- NOTE | 2017-08-10 11:06 | RADIOLOGY REPORT PS360 ---
CHEST(2 VIEWS-NOT PORTABLE) HISTORY: AR, chest pain, rhonchi on exam ORDERING PHYSICIAN: Nael Naidu MD PATIENT AGE: 61 years COMPARISON: 08/08/2017 FINDINGS: The cardiomediastinal silhouette and pulmonary vascularity are within normal limits. Patchy density is developed in the left lung base in the retrocardiac region consistent with an area of atelectasis or infiltrate. There is some minimal blunting of the left CP angle. . No acute bony abnormalities. IMPRESSION: Left lower lobe infiltrate and/or atelectatic change with small left effusion
--- NOTE | 2017-08-10 11:06 | RADIOLOGY REPORT PS360 ---
CHEST(2 VIEWS-NOT PORTABLE) HISTORY: DC, chest pain, rhonchi on exam ORDERING PHYSICIAN: Nael Naidu MD PATIENT AGE: 61 years COMPARISON: 08/08/2017 FINDINGS: The cardiomediastinal silhouette and pulmonary vascularity are within normal limits. Patchy density is developed in the left lung base in the retrocardiac region consistent with an area of atelectasis or infiltrate. There is some minimal blunting of the left CP angle. . No acute bony abnormalities. IMPRESSION: Left lower lobe infiltrate and/or atelectatic change with small left effusion
--- NOTE | 2017-08-10 16:57 | RADIOLOGY REPORT PS360 ---
PROCEDURE: 2-D M-mode and color Doppler study INDICATIONS FOR THE TEST: Chest pain + COPD Heart Murmur Tobacco Smoking+ Palpitations Fatigue Syncope Edema Hypertension+Diabetes Mellitus Rheumatic Fever SOB AVILEZ Obesity Hyperlipidemia+ Family History HD Additional History ID, SP CATH 08/09/17 PATIENT INFORMATION HEIGHT: 72 WEIGHT:168 GENDER: Male B/P:139/96 2-D/M-MODE INTERPRETATION: 2-D MEASUREMENTS OBSERVED VALUES IN CMS Right Ventricular Dimension (RVDd) 2.8 Interventricular Septum (Thickness)(IVsd) 1.4 Left Ventricular Internal Dimensions(LVIDd) 4.4 Left Ventricular Posterior Wall (Thickness)(LVPWd) 0.9 Aortic Root 3.3 Aortic Cusp Separation 2.0 Left Atrial Dimensions (LAD) 3.5 2D 1. Left atrium is qualitatively mildly enlarged, there is mild concentric left ventricular hypertrophy present, visually estimated ejection fraction approximately 45%, there is marked hypokinesis involving the basal septum, inferobasal and posterobasal wall. 2. The right atrium is mildly enlarged, right ventricle is mildly dilated with normal contractility. 3. The aortic valve is minimally thickened and fibrosed. 4. The mitral and tricuspid valve are grossly normal. 5. The pulmonic valve is poorly visualized. 6. No significant pericardial effusion noted. DOPPLER INTERROGATION: Doppler interrogation of the aortic, mitral and tricuspid valvular presence of mild mitral and tricuspid regurgitation, tricuspid and jet velocity insufficient for calculation of the right ventricular systolic pressure, grade 1 diastolic dysfunction seen without tissue Doppler evidence of raised left atrial pressure. CONCLUSION: 1. Mildly enlarged left atrium, normal left ventricular size, mild concentric left ventricular hypertrophy, visually estimated ejection fraction 45% with multiple segmental wall motion abnormality described above, grade 1 diastolic dysfunction seen without tissue Doppler evidence of raised left atrial pressure. 2. Mildly enlarged right ventricle with normal contractility. 3. Mild mitral and tricuspid regurgitation. 4. No significant pericardial effusion noted.
--- NOTE | 2017-08-10 20:09 | ACUTE CARE PROGRESS NOTE (QUA) ---
Progress Notes Subjective Date 08/10/17 Time 2006 Note He says he is resting more comfortably this evening. He is not short of breath. Chest x-ray showed an area of atelectasis on the LEFT. His temperature is 99.1. Blood pressure has been somewhat elevated. I will order incentive spirometry. Lisinopril will be increased. Objective Findings Last VS-Temp:99.1 B/P:151/104 Pulse:79 Resp:18 SaO2:99 OXYGEN Last weight lbs:168 oz:8 K.43 Method:Bed Scales Assessment/Plan Problem List 1. Acute ST elevation myocardial infarction (STEMI) 2. Tobacco use disorder 3. Cervical radiculopathy Plan: make medication changes, incentive spirometry This inpt stay is expected to cross 2 MNs from start of care Yes at 2008
[2017-08-11] VITALS (7 sets, daily range): BP systolic 127–140; BP diastolic 87–100
[2017-08-11 07:12] LABS: HEMOGLOBIN 12.6 g/dL (14.1-18.0); LYMPH # 1.8 K/mm3 (0.7-4.5); LYMPH % 20.8 % (10-50)
--- NOTE | 2017-08-11 08:01 | ACUTE CARE PROGRESS NOTE (QUA) ---
Progress Notes Subjective Date 08/11/17 Time 0756 Note He looks much better this morning. Get some rest last night and he says he feels better. He is more talkative. He appears not to be in pain. Objective Findings Last VS-Temp:98.0 B/P:133/96 Pulse:86 Resp:20 SaO2:95 OXYGEN Last weight lbs:168 oz:8 K.43 Method:Bed Scales Exam General appearance: alert, no acute distress Eyes: anicteric ENT: mucous membranes moist Cardiovascular: regular rate & rhythm Respiratory: no respiratory distress, diminished breath sounds ABD: soft, no tenderness Extremities: no peripheral edema Skin: dry, intact Neuro: intact Reviewed: medications, vital signs, lab results Assessment/Plan Problem List 1. Acute ST elevation myocardial infarction (STEMI) 2. Tobacco use disorder 3. Cervical radiculopathy Plan: continue current care, physical therapy. Saline lock This inpt stay is expected to cross 2 MNs from start of care Yes at 0800
--- NOTE | 2017-08-11 09:27 | ACUTE CARE PROGRESS NOTE (QUA) ---
Progress Notes Subjective Date 08/11/17 Time 0918 Note 61 yo WM in bed in NAD. Feeling better without chest pains. Still with congested cough. Objective Findings Last VS-Temp:98.2 B/P:140/100 Pulse:97 Resp:24 SaO2:95 OXYGEN Last weight lbs:168 oz:8 K.43 Method:Bed Scales Exam General appearance: alert, awake, no acute distress Cardiovascular: regular rate & rhythm Respiratory: Decreased breath sounds bilaterally with crackles left base that improve with breathing. Congested cough. Reviewed: medications, vital signs, lab results Assessment/Plan Problem List 1. Acute ST elevation myocardial infarction (STEMI) Qualifiers: Involved coronary artery: right coronary artery Qualified Code: I21.11 - ST elevation (STEMI) myocardial infarction involving right coronary artery 2. Tobacco use disorder 3. Cervical radiculopathy 4. Cardiomyopathy, ischemic Assessment/Plan: EF 45% by echo with segmental wall motion abnormalities. Will increase metoprolol for better BP/HR control in setting of ischemic cardiomyopathy. Continue to titrate JOSE ALEJANDRO as tolerated. Patient condition Stable Plan: See above. This inpt stay is expected to cross 2 MNs from start of care Yes at 0940
[2017-08-12] VITALS (7 sets, daily range): BP systolic 104–143; BP diastolic 61–98
--- NOTE | 2017-08-12 12:06 | ACUTE CARE PROGRESS NOTE (QUA) ---
Progress Notes Subjective Date 08/12/17 Time 1204 Note He is better. He states he feels better. He rested okay last night. Objective Findings Last VS-Temp:98.4 B/P:104/67 Pulse:74 Resp:20 SaO2:97 ROOM AIR Last weight lbs:168 oz:8 K.43 Method:Bed Scales Exam General appearance: active, no acute distress Eyes: PERRLA ENT: mucous membranes moist Cardiovascular: regular rate & rhythm Respiratory: aerating well, rhonchi ABD: soft, no tenderness Extremities: no peripheral edema Skin: dry, intact Reviewed: medications, vital signs, lab results Assessment/Plan Problem List 1. Acute ST elevation myocardial infarction (STEMI) 2. Tobacco use disorder 3. Cervical radiculopathy 4. Cardiomyopathy, ischemic Patient condition Improving Plan: encouraged to increase activity level. Possibly home tomorrow or Monday. This inpt stay is expected to cross 2 MNs from start of care Yes at 1206
[2017-08-13 00:24] VITALS: BP 135/84
[2017-08-13 04:08] VITALS: BP 124/75
[2017-08-13 07:38] VITALS: BP 116/70
[2017-08-13 14:26] LABS: LYMPH # 1.7 K/mm3 (0.7-4.5); LYMPH % 18.5 % (10-50)
[2017-08-13 14:27] LABS: HEMOGLOBIN 14.6 g/dL (14.1-18.0)
--- NOTE | 2017-08-13 14:39 | ACUTE CARE PROGRESS NOTE (QUA) ---
Progress Notes Subjective Date 08/13/17 Time 1437 Note He is feeling much better. The nitroglycerin ointment has been held at this point. I will decrease it to every 8 hours. Vital signs are stable. He has been up in the hallway walking. He is probably ready for discharge tomorrow. Objective Findings Last VS-Temp:98.2 B/P:116/70 Pulse:76 Resp:20 SaO2:95 ROOM AIR Last weight lbs:168 oz:8 K.43 Method:Bed Scales Exam General appearance: alert, no acute distress Eyes: anicteric, PERRLA ENT: mucous membranes moist Cardiovascular: normal sinus rhythm Respiratory: good air movement, rhonchi (but less) ABD: soft, no tenderness Extremities: no peripheral edema Skin: dry, intact Neuro: alert, oriented, speech clear Reviewed: medications, vital signs, lab results (labs ordered for today) Assessment/Plan Problem List 1. Acute ST elevation myocardial infarction (STEMI) 2. Tobacco use disorder 3. Cervical radiculopathy 4. Cardiomyopathy, ischemic Patient condition Improving Plan: discharge in a.m. This inpt stay is expected to cross 2 MNs from start of care Yes at 1431
[2017-08-13 15:50] VITALS: BP 103/73
[2017-08-13 20:50] VITALS: BP 134/80
[2017-08-13 21:10] VITALS: BP 132/85
[2017-08-14 00:20] VITALS: BP 132/85
[2017-08-14 04:24] VITALS: BP 121/90
--- NOTE | 2017-08-14 07:56 | ACUTE CARE PROGRESS NOTE (QUA) ---
Progress Notes Subjective Date 08/14/17 Time 0751 Note 61 yo WM in bed in NAD. States he is feeling well and ready to go home. No cigarettes in a week. Objective Findings Last VS-Temp:98.3 B/P:121/90 Pulse:67 Resp:18 SaO2:98 ROOM AIR Last weight lbs:168 oz:8 K.43 Method:Bed Scales Exam General appearance: alert, awake, no acute distress Cardiovascular: regular rate & rhythm Respiratory: wheezing ABD: soft, no tenderness Extremities: moves all, no peripheral edema Neuro: alert, intact, oriented Reviewed: medications, vital signs, lab results Assessment/Plan Problem List 1. Acute ST elevation myocardial infarction (STEMI) Qualifiers: Involved coronary artery: right coronary artery Qualified Code: I21.11 - ST elevation (STEMI) myocardial infarction involving right coronary artery 2. Tobacco use disorder 3. Cervical radiculopathy 4. Cardiomyopathy, ischemic Patient condition Stable Plan: Continue ASA 81 mg daily, Effient 10 mg daily, Metoprolol 50 mg BID, Lisinopril 10 mg BID, Lasix 40 mg daily and decrease potassium to 40 meq daily. Will switch NTG paste to isosorbide mononitrate 30 mg daily. Continue atorvastatin 40 mg daily. Smoking cessation encouraged. Follow up with Dr. Robles next week (Aug 22). Pt to let us know what time he can be there. This inpt stay is expected to cross 2 MNs from start of care Yes at 0756
[2017-08-14 08:00] VITALS: BP 92/64
--- NOTE | 2017-08-14 08:36 | ACUTE CARE PROGRESS NOTE (QUA) ---
Progress Notes Subjective Date 08/14/17 Time 0827 Note states that he is going home today; denies CP and SOB; has been eating OK; has ambulated in the hallway without problems; voiding QS and bowels have been moving Objective Findings Laboratory Tests 08/13/17 1413: Sodium 133 L, Potassium 4.3, Chloride 99, Carbon Dioxide 27, BUN 17, Creatinine 1.0, Estimated Creat Clear 84, Estimated GFR (MDRD) 76, Glucose 114 H, Calcium 9.3, WBC 9.1, RBC 4.43 L, Hgb 14.6, Hct 43.1, MCV 97.3, RDW 12.7, Plt Count 294 , MPV 7.4, Gran % 72.7, Gran # 6.6, Lymphocytes % 18.5, Monocytes % 5.4, Eosinophils % 2.9, Basophils % 0.5, Lymphocytes # 1.7, Monocytes # 0.5, Eosinophils # 0.3, Basophils # 0.1, PUBS MCHC 34.1, MCH 33.2 H Vital Signs Date Time Temp Pulse Resp B/P Pulse O2 O2 Flow FiO2 Ox Delivery Rate 08/14 0800 97.7 94 18 92/64 95 ROOM AIR 08/14 0424 98.3 67 18 121/90 98 ROOM AIR 08/14 0304 93 ROOM AIR 08/14 0020 97.8 67 16 132/85 98 ROOM AIR 08/13 2110 97.8 67 16 132/85 93 08/13 2050 97.5 76 18 134/80 98 ROOM AIR 08/13 1550 98.0 68 20 103/73 98 ROOM AIR 08/13 0900 98.2 76 20 116/70 95 Current Medications Isosorbide Mononitrate 30 MG DAILY PO Nitroglycerin 0.5 IN Q8 TP (DC) Metoprolol Tartrate 50 MG BID PO Aspirin 81 MG DAILY PO Prasugrel 10 MG DAILY PO Sodium Chloride 10 ML PRN PRN IV Atorvastatin Calcium 40 MG QHS PO Lisinopril 10 MG BID PO Potassium Chloride 40 MEQ BID PO Sodium Chloride 1,000 ML .[id number] IV Furosemide 40 MG DAILY PO Nitroglycerin 0.5 IN Q6 TP (DC) Morphine Sulfate 2 MG Q4HP PRN IV Nicotine 21 MG DAILYP PRN TD Nitroglycerin 0.4 MG [id number] PRN SL Promethazine HCl 25 MG Q4HP PRN IV Sodium Chloride 10 ML PRN PRN IV Sodium Chloride 25 ML PRN PRN IV Temazepam 15 MG QHSP PRN PO 08/13 1500 08/13 2300 08/14 0700 Intake Total 480 960 Output Total Balance 480 960 Intake, Oral 480 960 Last VS-Temp:97.7 B/P:92/64 Pulse:94 Resp:18 SaO2:95 ROOM AIR Last weight lbs:168 oz:8 K.43 Method:Bed Scales Exam General appearance: alert, no acute distress, sitting up in the bed Cardiovascular: regular rate & rhythm Respiratory: end expiratory wheeze throughout ABD: non-distended, soft, no tenderness, bowel sounds present Extremities: no peripheral edema Neuro: alert, oriented Assessment/Plan Problem List 1. Acute ST elevation myocardial infarction (STEMI) 2. Tobacco use disorder 3. Cervical radiculopathy 4. Cardiomyopathy, ischemic Patient condition Improved Plan: Home today with FU with Dr. Naidu and cardiology This inpt stay is expected to cross 2 MNs from start of care Yes at 0835
[2017-08-14] MEDS ORDERED: LISINOPRIL10 MG PO (08:43)
[2017-08-14] MEDS ORDERED: ISOSORBIDE MONO30 MG PO (08:43)
[2017-08-14] MEDS ORDERED: LOPRESSOR 50 MG50 MG PO (08:44)
[2017-08-14] MEDS ORDERED: FUROSEMIDE40 MG PO (08:45)
[2017-08-14] MEDS ORDERED: HABITROL21 MG/24 H TD (08:45)
[2017-08-14] MEDS ORDERED: K-DUR 20MEQ TA20 MEQ PO (08:46)
[2017-08-14] MEDS ORDERED: ASPIRIN 81MG TA81 MG PO (08:47)
[2017-08-14] MEDS ORDERED: LIPITOR40 M1 PO (08:47)
[2017-08-14] MEDS ORDERED: NITROGLYCERIN0.4 MG SL (08:48)
[2017-08-14] MEDS ORDERED: RESTORIL 15MG C15 MG PO (08:49)
[2017-08-14] MEDS ORDERED: EFFIENT10 M2 PO (08:50)
[2017-08-14 09:21] VITALS: BP 92/64
[2017-08-14 09:24] VITALS: BP 92/64
--- NOTE | 2017-08-14 16:21 | DISCHARGE SUMMARY STANDARD ---
Discharge Summary (FCA2) Date of admission: 08/08/17 Date of discharge: 08/14/17 Problem List: 1. Acute ST elevation myocardial infarction (STEMI) 2. Tobacco use disorder 3. Cervical radiculopathy 4. Cardiomyopathy, ischemic History of present illness: Mr Leach is a 61-year-old white male admitted through the emergency department last evening for subacute myocardial infarction. Patient relates onset of chest discomfort with radiation into the neck and the jaw which started the previous Monday while burning trash. Symptoms at that time were resolved after a few minutes of rest. The symptoms occurred with less and less activity since then and included difficulty breathing. He then began having episodes of near syncope. This is the reason that he came to the ER for further evaluation. Electrocardiogram in the ER revealed Q waves inferiorly, lab work revealed elevated troponins and subsequently patient was admitted for further evaluation and treatment. He was started on Effient, metoprolol and heparin drip. Symptoms have resolved and patient feels better this morning. Telemetry this a.m. revealed a 17 beat run of nonsustained ventricular tachycardia that is about 210 bpm. Patient was asymptomatic during this time. Cardiology consulted for evaluation and recommendations. Exam on admission: 1ST Vital Signs Result Date Time Pulse Ox 96 08/08 1912 B/P 157/109 08/08 1912 Temp 99.0 08/08 1912 Pulse 86 08/08 1912 Resp 28 08/08 1912 O2 Delivery ROOM AIR 08/08 2210 Exam: General appearance: alert, no acute distress, fully bearded Eyes: anicteric ENT: tongue coated Neck: no carotid bruit, full range of motion Cardiovascular: regular rate & rhythm, run of VT this AM Respiratory: diminished BS posteriorly ABD: non-distended, soft, no tenderness, bowel sounds present Extremities: moves all, no peripheral edema, no calf tenderness Neuro: alert, oriented Hospital Course: On admission with cardiac consultation patient was started on Effient, metoprolol and heparin drip. Symptoms did resolve with this and patient felt better. Telemetry did reveal a 17 beat run of nonsustained ventricular tachycardia that was about 210 bpm. Patient was asymptomatic during this time. Cardiac cath on 08/09/17 revealed severe 2 vessel coronary artery disease. Patient had successful stenting of the ostial proximal and mid codominant right coronary; artery critical disease reduced to 0% with 2 drug-eluting stents; persistent severe stenosis in the ostial and mid codominant circumflex artery and severe stenosis in the second obtuse marginal artery; preserved ejection fraction; and Normal to mildly elevated LVEDP. Cardiology plan was to continue with Effient and ASA; achieve a LDL <55; continue with Carvedilol and lisinopril; smoking cessation; cardiac rehab; and return to [facility] for stenting of the ostial circumflex artery and mid circumflex artery with possible intervention of the second obtuse marginal artery in 2 weeks. Patient did have some CP the night after his cath. Patient was started on Nitropaste and lisinopril was increased due to elevated BP. He had no further CP or SOB. By 08/14/17 he was ambulating in the hallway without problems. He was ready for discharge. He had not smoked in 1 week. Laboratory data this visit: 08/09/17 0540: Triglycerides 68, Cholesterol 128, LDL Cholesterol 79.4, VLDL Cholesterol 13.6, HDL Cholesterol 35.0 L 08/09/17 0540: Sodium 135 L, Potassium 3.2 L, Chloride 100, Carbon Dioxide 32, BUN 11, Creatinine 0.9, Estimated Creat Clear 91, Estimated GFR (MDRD) 86, Glucose 110 H, Calcium 8.5, Total Bilirubin 0.5, AST 68 H, ALT 24, Alkaline Phosphatase 73, Total Protein 6.5, Albumin 3.0 L, Globulin 3.5 H, Albumin/Globulin Ratio 0.9 L, PT 10.7, INR 0.99, APTT 51.6 *H, WBC 8.0, RBC 3.82 L, Hgb 12.6 L, Hct 37.5 L, MCV 98.0 H, RDW 13.3, Plt Count 138 L, MPV 8.0, Gran % 60.8, Gran # 4.8, Lymphocytes % 29.6, Monocytes % 6.8, Eosinophils % 2.3, Basophils % 0.5, Lymphocytes # 2.4, Monocytes # 0.5, Eosinophils # 0.2, Basophils # 0.0, PUBS MCHC 33.4, MCH 32.8 H 08/08/17 1930: Creatine Kinase 500 H, CK-MB (CK-2) Rel Index 3.0, CK and CKMB Interp 15.1 *H, Troponin I 17.17 H 08/08/17 1930: Sodium 124 L, Potassium 3.1 L, Chloride 95 L, Carbon Dioxide 35 H, BUN 14, Creatinine 1.0, Estimated Creat Clear 93, Estimated GFR (MDRD) 76, Glucose 118 H, Calcium 9.1, Total Bilirubin 0.3, AST 94 H, ALT 25, Alkaline Phosphatase 69, Total Protein 7.3, Albumin 3.5, Globulin 3.8 H, Albumin/Globulin Ratio 0.9 L, APTT 29.1, WBC 10.5, RBC 4.31 L, Hgb 14.2, Hct 42.2, MCV 97.9 H, RDW 13.2, Plt Count 165, MPV 7.7, Gran % 65.8, Gran # 6.9, Lymphocytes % 24.7, Monocytes % 7.5 , Eosinophils % 1.4, Basophils % 0.5, Lymphocytes # 2.6, Monocytes # 0.8, Eosinophils # 0.2, Basophils # 0.1, PUBS MCHC 33.4, MCH 32.7 H Imagin08/08/17 CXR IMPRESSION: Overlying artifact, no acute finding Cardiac cath 08/09/17 IMPRESSION: 1. Severe 2 vessel coronary artery disease as described above 2. Successful stenting of the ostial proximal and mid codominant right coronary artery critical disease reduced to 0% with 2 drug-eluting stents 3. Persistent severe stenosis in the ostial and mid codominant circumflex artery and severe stenosis in the second obtuse marginal artery 4. Preserved ejection fraction 5. Normal to mildly elevated LVEDP PLAN: 1. Effient 10 mg daily followed by aspirin 81 mg daily 2. LDL less than 55 3. Carvedilol plus lisinopril 4. Avoidance of tobacco products 5. Cardiac rehabilitation 6. In 2 weeks I would recommend bring patient back to the [facility] and undergo stenting of the ostial circumflex artery and mid circumflex artery with possible intervention of the second obtuse marginal artery 08/10/17 Repeat CXR IMPRESSION: Left lower lobe infiltrate and/or atelectatic change with small left effusion 08/10/17 ECHO CONCLUSION: 1. Mildly enlarged left atrium, normal left ventricular size, mild concentric left ventricular hypertrophy, visually estimated ejection fraction 45% with multiple segmental wall motion abnormality described above, grade 1 diastolic dysfunction seen without tissue Doppler evidence of raised left atrial pressure. 2. Mildly enlarged right ventricle with normal contractility. 3. Mild mitral and tricuspid regurgitation. 4. No significant pericardial effusion noted. Discharge medications: Stop taking the following medications: No Home Medications (NO HOME MEDICATIONS) DOC Does Not Apply ONE TIME Calcium Carbonate/Simethicone (Yaneli-[place] Heartburn+Gas) 1 EACH TAB.CHEW ORAL TWICE A DAY as needed for GAS Start taking the following new medications: Lisinopril (Lisinopril) 10 MG TABLET 10 MILLIGRAM ORAL TWICE A DAY Qty = 60 Refills = 4 Isosorbide Mononitrate (Isosorbide Mononitrate ER) 30 MG TAB.ER.24H 30 MILLIGRAM ORAL DAILY Qty = 30 Refills = 4 Metoprolol Tartrate (Lopressor) 50 MG TABLET 50 MILLIGRAM ORAL TWICE A DAY Qty = 60 Refills = 4 Furosemide (Furosemide 40MG) 40 MG TABLET 40 MILLIGRAM ORAL DAILY Qty = 30 Refills = 4 Nicotine (Nicotine Patch) 1 EACH PATCH.TD24 21 MILLIGRAM TRANSDERM DAILY NEEDED as needed for SMOKING CESSATION Qty = 30 Refills = 4 POTASSIUM CHL (Potassium Chloride) 20 MEQ TAB.ER.PRT 40 Milliequivalent ORAL TWICE A DAY Qty = 30 Refills = 4 ASPIRIN (Aspirin) 81 MG TAB.CHEW 81 MILLIGRAM ORAL DAILY Qty = 100 Refills = 2 Atorvastatin Calcium (Lipitor 40MG) 40 MG TABLET 40 MILLIGRAM ORAL AT BEDTIME NIGHTLY Qty = 30 Refills = 4 NITROGLYCERIN (Nitrostat) 0.4 MG TAB.SUBL 0.4 MILLIGRAM SUBLINGUAL EVERY FIVE MINUTES NEEDED as needed for CHEST PAIN Qty = 1 Refills = 2 Temazepam (Restoril 15MG) 15 MG CAPSULE 15 MILLIGRAM ORAL AT BEDTIME NEEDED as needed for SLEEP Qty = 30 No Refills Prasugrel HCl (Effient) 10 MG TABLET 10 MILLIGRAM ORAL DAILY Qty = 30 Refills = 4 Instructions: PO Disposition: Follow up: [address] Moises Naidu and with Dr. Robles in 1 week Activity: Limited activity Diet: Low Fat/Low Cholesterol Discharge to: HOME Agency needed? N Patient plans to not smoke any more. Meds as per reconciliation sheet. at 1629
== END 2017-08-14 11:20 | disposition home or self-care (01) | DRG 247 ==
LOC: ER 18:56 → 2ND 20:03 → ER 20:03 → 2ND 22:06
PROVIDERS: Family Medicine; General Practice; Internal Medicine
PROC: 027035Z Dilation of Coronary Artery, One Artery with Two Drug-eluting Intraluminal Devices, Percutaneous Approach (ICD-10-PCS; 2017-08-09)
PROC: B2111ZZ Fluoroscopy of Multiple Coronary Arteries using Low Osmolar Contrast (ICD-10-PCS; 2017-08-09)
PROC: B2151ZZ Fluoroscopy of Left Heart using Low Osmolar Contrast (ICD-10-PCS; 2017-08-09)
PROC: 4A023N7 Measurement of Cardiac Sampling and Pressure, Left Heart, Percutaneous Approach (ICD-10-PCS; principal; 2017-08-09 12:15)
DX: I21.3 ST elevation (STEMI) myocardial infarction of unspecified site (principal); I10 Essential (primary) hypertension; I25.119 Atherosclerotic heart disease of native coronary artery with unspecified angina pectoris; Z72.0 Tobacco use; I25.5 Ischemic cardiomyopathy; E87.6 Hypokalemia
CPT/HCPCS: C1725; C1760; C1769; C1876; G0238; J1644; J2405; Q9967

== ENCOUNTER 2017-08-14 15:11 | Observation (INO) | payer MEDICARE, MEDICAID ==
[~2017-08-14] VITALS: Ht 182.9 cm; Wt 73.7 kg
[~2017-08-14 15:11] MED LIST changes: +ALKA-SELTZER H1 EAC1 PO; +ASPIRIN 81MG TA81 MG PO; +EFFIENT10 M2 PO; +FUROSEMIDE40 MG PO; +HABITROL21 MG/24 H TD; +ISOSORBIDE MONO30 MG PO; +K-DUR 20MEQ TA20 MEQ PO; +LIPITOR40 M1 PO; +LISINOPRIL10 MG PO; +LOPRESSOR 50 MG50 MG PO; +NITROGLYCERIN0.4 MG SL; +NOMEDS XX; +RESTORIL 15MG C15 MG PO
[2017-08-14 15:13] VITALS: BP 78/52
[2017-08-14 15:31] LABS: HEMOGLOBIN 14.6 g/dL (14.1-18.0); LYMPH # 1.7 K/mm3 (0.7-4.5); LYMPH % 14.8 % (10-50)
--- NOTE | 2017-08-14 15:37 | Emergency Room Report ---
History of Present Illness Time Seen by [email or web address] Presenting Problem in Triage Pt arrived:Walked Presenting Problem:ENDORSES HEADACHE, DIAPHORESIS FOR "AN HOUR AND A HALF." PATIENT PRESENTS WITH NITRO PATCH ON THAT HE STATES HE PUT ON AT 0500. 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 N Clinical Suspician of Infection? N Mental Status: 1 - Regular (Normal Baseline) Sepsis Risk:Low Sepsis Risk Have you (or family members/close friends) recently traveled outside the [place]? N If Yes, where/when: Have you had exposure to infectious disease within the past month? TB? Other? Specify: 61 years old white male who was recently discharged from the hospital with a nitroglycerin patch on him. He reports that he took his blood pressure medicine this morning and an hour and a half ago he started getting weak, dizzy, and felt like he is not getting enough oxygen to his brain. Upon arrival to the ED his systolic blood pressure was 80/50. Started IV fluids is coming up to 90/60. Vision denies having chest pain he has chronic lower back pain. Denies shortness of breath or palpitations. Nausea vomiting or diarrhea. He denies having lower extremity symptoms. Source patient, RN notes reviewed, family (1/2 brother inthe room) Exam Limitations no limitations ALLERGIES Coded Allergies: No Known Allergies (04/16/17) Home Medications Active Scripts Lisinopril 10 MG PO BID #60 TAB Ref 4 Prov: 08/14/17 Isosorbide Mononitrate (Isosorbide Mononitrate ER) 30 MG PO DAILY #30 Ref 4 Prov: 08/14/17 Metoprolol Tartrate (Lopressor) 50 MG PO BID #60 TAB Ref 4 Prov: 08/14/17 Furosemide (Furosemide 40MG) 40 MG PO DAILY #30 TAB Ref 4 Prov: 08/14/17 Nicotine (Nicotine Patch) 21 MG TD DAILYP PRN SMOKING CESSATION #30 Ref 4 Prov: 08/14/17 POTASSIUM CHL (Potassium Chloride) 40 MEQ PO BID #30 Ref 4 Prov: 08/14/17 ASPIRIN (Aspirin) 81 MG PO DAILY #100 Ref 2 Prov: 08/14/17 Atorvastatin Calcium (Lipitor 40MG) 40 MG PO QHS #30 TAB Ref 4 Prov: 08/14/17 NITROGLYCERIN (Nitrostat) 0.4 MG SL [id number] PRN CHEST PAIN #1 BOTTLE Ref 2 Prov: 08/14/17 Temazepam (Restoril 15MG) 15 MG PO QHSP PRN SLEEP #30 CAPSULE Prov: 08/14/17 Prasugrel HCl (Effient) 10 MG PO DAILY #30 TAB Ref 4 Prov: 08/14/17 Discontinued Reported Medications Calcium Carbonate/Simethicone (Yaneli-[place] Heartburn+Gas) 1 EACH PO BID PRN GAS No Home Medications (NO HOME MEDICATIONS) 1 EACH XX ONCE History Medical History General CAD? No Angina: No [place]: Yes Hypertension? No Hyperlipidemia? No CHF? No DVT? No PE? No COPD? No Asthma? No Anemia? No GERD? No Gastric ulcers? No GI Bleed? No Hernia? No Thyroid Problems? No Hypothyroidism? No CVA? No Seizures? No Diabetes? No Renal Insuffiency? No End Stage Renal Disease? No UTI? No Stones? No BPH? No GB Disease: No Nephritic Syndrome? No Asplenia? No Hepatitis? No Sickle Cell Disease? No Arthritis? No Migraines? No Cataracts? No Glaucoma? No MRSA? No HIV? No TB? No Anxiety? No Depression? No Cancer? No More? No Immunization Hx DT/Tetanus NOT SURE Pneumonia Never Had Surgical Hx Previous Surgery?Y NECK X 2 R ANKLE Family History Family Hx Diabetes Yes CAD Yes Hypertension Yes Hyperlipidemia No Cancer No TB No Social History Smoking Hx Smoker: Former Smoker Tobacco: No Packs/day 1 1/2 - 2 Packs Alcohol Alcohol: No Review of Systems All Other Systems Reviewed and Negative Constitutional see HPI, weakness Eyes no symptoms reported ENT no symptoms reported. Respiratory no symptoms reported Cardiovascular no symptoms reported Gastrointestinal no symptoms reported Genitourinary no symptoms reported. Musculoskeletal see HPI, back pain (chronic ) Skin no symptoms reported (r forearm ecchymosis) Psychiatric/Neurological no symptoms reported Physical Exam Vital Signs Vital Signs Date Time Temp Pulse Resp B/P Pulse O2 O2 Flow FiO2 Ox Delivery Rate 08/14 1734 80 20 104/68 99 08/14 1640 64 20 98/60 96 08/14 1513 97.8 81 20 96 - WBC >12,000 or <4,000 or 10% bands? 2 or more SIRS Criteria Met? B/P: MAP:60 Creatinine >2.0? UA output<0.5ml/kg/hr for 2 hrs? Platelet count >100,000? Lactate >2.0mmol/1? INR >1.2 or PTT > than 60 sec? Evidence of Organ Dysfunction? Provider documented clinical suspician of infection? N Sepsis Criteria Count: 1 Sepsis Risk: Low Sepsis Risk General Appearance normal appearance, WD/WN Eye Exam - bilateral eye normal exam, bilateral eye PERRL, bilateral eye EOMI Ear, Nose, Throat hearing grossly normal, normal ENT inspection Neck normal inspection, non-tender, supple, full range of motion Respiratory Status Yes: trachea midline, chest symmetrical, non tender chest. No: respiratory distress. Lung Sounds bilateral: normal breath sounds, lungs clear. 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 No Results/Orders Laboratory Tests 08/14/17 1520: Sodium 135 L, Potassium 5.5 H, Chloride 101, Carbon Dioxide 24, BUN 24 H, Creatinine 1.6 H, Estimated Creat Clear 52, Estimated GFR (MDRD) 44, Glucose 136 H, Calcium 9.3, Total Bilirubin 0.5, AST 16, ALT 30, Alkaline Phosphatase 82, Creatine Kinase 45, CK-MB (CK-2) Rel Index 1.1, CK and CKMB Interp 0.5, Troponin I 0.62 H, Total Protein 7.3, Albumin 3.3 L, Globulin 4.0 H, Albumin/ Globulin Ratio 0.8 L, WBC 11.2 H, RBC 4.43 L, Hgb 14.6, Hct 43.4, MCV 97.9 H , RDW 12.9, Plt Count 403, MPV 7.4, Gran % 77.1, Gran # 8.6 H, Lymphocytes % 14.8, Monocytes % 6.3, Eosinophils % 1.2, Basophils % 0.6, Lymphocytes # 1.7, Monocytes # 0.7, Eosinophils # 0.1, Basophils # 0.1, PUBS MCHC 33.8, MCH 33.1 H Current Medication Orders Sig/Alex Start time Last Medication Dose Route Stop Time Status Admin Iopamidol 100 ML ONCE ONE 08/14 1645 UNV 08/14 IV 08/14 1646 1642 Sodium Chloride 10 ML ONCE ONE 08/14 1645 UNV 08/14 IV 08/14 1646 1642 Sodium Chloride 40 ML ONCE ONE 08/14 1645 UNV 08/14 IV 08/14 1646 1642 Sodium Chloride 10 ML PRN PRN 08/14 1530 AC IV 08/15 1522 Sodium Chloride 1,000 ML .[id number] 08/14 1530 DC 08/14 IV 08/14 1630 1525 Sodium Chloride 10 ML PRN PRN 08/14 1530 AC IV 08/15 1523 Sodium Chloride 1,000 ML .STK-MED ONE 08/14 1519 DC IV Orders Procedure Date/time Status DIET-NOTHING BY MOUTH 08/14 D Active CTA-CHEST 08/14 1603 Active CTA ABD/PELVIS 08/[address] CHEST SCAN REQ 08/[address] ABD/PELVIS REQ 08/14 1541 Complete ELECTROCARDIOGRAM REQUEST 08/14 1524 Active IV SALINE LOCK 08/14 1524 Active CBC WITH AUTO DIFF 08/14 1524 Complete CARDIAC ENZYMES 08/14 1524 Complete CHEM 12 PROFILE 08/14 1524 Complete Departure Departure Time of Disposition 173 Disposition Still a Patient Clinical Impression Primary Impression: Renal insufficiency Secondary Impressions: CAD (coronary artery disease), Elevated troponin, Hypotension Condition STABLE Referrals Nael Naidu MD (Family) Additional Instructions The patient's blood pressure was reduced to 100/60. CT scan was negative for dissection. 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 His creatinine was elevated and this raises the issue of IV dye nephropathy. I discussed with Dr. Naidu who advised to admit gentle rehydration. The patient was admitted in a stable condition. Discharge Counseling Counseled pt/family regarding diagnosis, test results, medications/RX, follow up needs ED Critical Care Critical Care No If Critical Care minutes are documented, the time involved in the performance of seperately reportable procedures was not counted toward critical care time documented. I directly delivered medical care to this critically ill and/or injured patient. Timely evaluation and treatment was necessary to address the significant organ system(s) dysfunction present in this patient. at 1740
--- NOTE | 2017-08-14 17:42 | RADIOLOGY REPORT PS360 ---
CTA-CHEST, CTA ABD/PELVIS HISTORY: HYPOTENSION, S/P CATH, R/O DISSECTION Patient Age: 61 years: Male Ordering Physician: Evelyne Springer MD TECHNIQUE: Thin section spiral CT scanning performed beginning at the top of aortic arch and extending through the pelvis, following 100 cc [id number] followed x 40 mL normal saline. COMPARISON :None CTA CHEST/THORACIC AORTA: No evidence of dissection at the aortic arch or descending aorta. Good enhancement of great vessels Moderate diffuse Atheromatous plaque is seen circumferentially throughout the descending aorta healing of the 20% stenosis in some areas. Also note Focal area of plaque 11 x 12 mm , seen at the posterior posterior ascending aorta. At the heart there is likely a stent at the right coronary artery proximally. Minimal calcification is seen at the origin of LAD and circumflex. Heart is normal in size no pericardial effusion no mediastinal mass or adenopathy hilar regions appear satisfactory. There are underlying emphysematous changes but no significant lesions evident within the lung mild atelectasis and scarring at the posterior left lung base left posterior sulcus. CTA ABDOMEN & PELVIS: There is aneurysmal dilatation of the lower abdominal aorta 1.2 cm x 4.3 cm external diameter. Is we continue from the thoracic into the abdominal aorta there is progressively thick and pronounced circumferential atheromatous plaque which is most pronounced just the level of the renal arteries. Up to roughly 50% stenosis. The enhancing patent lumen decreases 4.1 cm to 3.3 cm area in the abdomen to 34 x 33 mm disc above the celiac artery, to 15 x 22 mm immediate infrarenal ; with another relative stenosis just below the to 20 x 15 mm just slightly below this. Prominent atheromatous plaque continues to the aortic bifurcation. Involving the segment aneurysm dilatation margins of both iliac arteries. Most important regarding hypertension as we see no no dissection or hemorrhage or fluid collection at the chest or abdomen. The liver. Early enhancement phase are unremarkable. Spleen early phase enhancement of spleen and accounts for the patchy appearance here. Pancreas unremarkable as are adrenals. There is a common origin for the celiac artery and SMA but they remain widely patent. . The renal arteries are patent bilaterally with 30-40% stenosis at % at origin of right & left renal artery... Gallbladder unremarkable. \ GI tract. Liquid stool developing at the right colon and distal small bowel.. Question developing diarrhea or developing enteritis. No bowel wall thickening. No free fluid no free air. Degenerative disc changes L5/S1 degenerative hypertrophic facet changes lower L-spine. There is a defect at the right iliac bone possibly from previous bone graft site lesion. Clinical correlation required. Corticated margins. IMPRESSION No aortic dissection. No focal hemorrhage or fluid collection Extensive atheromatous plaque throughout the abdominal aorta. Moderate Circumferential plaque throughout the descending aorta Aneurysmal dilatation lower abdominal aorta, up to 4.3 cm external diameter Increasing prominent circumferential atheromatous plaque with the inferiorly into the abdominal aorta, becoming most pronounced at the infrarenal region. Roughly 50% stenosis of the lumen in some areas here. . Mild aneurysmal dilatation at origins of the iliac arteries bilaterally, with the generous circumferential intraluminal atheromatous continuing to the distal aorta and into the iliac artery origins... Kidneys enhance bilaterally with estimate roughly 30-40% stenosis origin of the renal arteries Celiac artery & SMA have,, common origin but appear widely patent. No bowel wall thickening Liquid stool right colon distal small bowel could reflect developing diarrhea or enteritis possibly?.
[2017-08-14 18:32] VITALS: BP 105/80
[2017-08-14 18:55] VITALS: BP 122/85
[2017-08-14 19:28] VITALS: BP 114/66
[2017-08-14 21:30] VITALS: BP 122/85
[2017-08-15 04:42] VITALS: BP 108/72
--- NOTE | 2017-08-15 07:24 | PHARMACY CLINIC NOTE ---
Patient Demographics Patient Demographics Admission date: 08/14/17 Date: 08/15/17 Time: 07 Allergies Coded Allergies: No Known Allergies (04/16/17) HEIGHT- FT: 6 IN: 0.00 K.653 VTE General Information Labs: Laboratory Tests 08/14 1520 Hematology Hgb (14.1 - 18.0 g/dL) 14.6 Hct (42.0 - 52.0 %) 43.4 Plt Count (142 - 424 K/mm3) 403 Disclaimer The following section includes nursing documentation that has been pulled in for pharmacy review. Patient's VTE score: 2 Patient's VTE Risk: VERY LOW RISK Clinical trial participant? No VTE prophylaxis [id number] VTE prophylaxis ordered? Yes Type of prophylaxis/treatment: KANG at 0723
[2017-08-15 08:15] LABS: HEMOGLOBIN 13.3 g/dL (14.1-18.0); LYMPH % 20.4 % (10-50)
[2017-08-15 08:16] LABS: LYMPH # 1.7 K/mm3 (0.7-4.5)
[2017-08-15 08:25] VITALS: BP 106/66
--- NOTE | 2017-08-15 08:29 | CONSULT NOTE ---
Standard Demographics Patient Demo Date of Consultation: 08/15/17 Referring Provider: Mariel Naidu MD Reason for Consultation: Hypotension, recent STEMI PRIMARY DIAGNOSIS: RENAL INSUFFICIENCY Problem list Problem list: 1. Coronary artery disease A. ST elevation myocardial infarction, 08/08/2017, with subsequent coronary artery stenting. 2. Hypertension 3. Hyperlipidemia 4. Chronic neck pain with history of neck surgery 5. Tobacco use, one pack per day, greater than 50 years 6. Question will family history of coronary disease in his mother History of present illness: History of present illness: 61-year-old white male recently admitted for myocardial infarction with subsequent cardiac catheterization and coronary artery stenting was discharged home yesterday morning. After leaving here the patient bought some groceries and was attempting to take his groceries in side his home when he became extremely weak and had a feeling of "like my head was going to explode." Patient came to the emergency department for evaluation. Systolic pressure was noted to be in the 70s. He was still wearing nitroglycerin paste from his discharge yesterday morning. Patient denies any chest pain. He had not taken any further medication since his hospital discharge yesterday morning. IV fluids were started in the emergency department and the patient is feeling better at this time. Cardiology consulted for evaluation and recommendations. Past Medical History: General: Hypertension No CVA No Seizures No TB No COPD No Asthma No Diabetes No Angina No IN Yes Hyperlipidemia No Urinary No Cancer No Rheumatic H.D. No Ulcers No MRSA No GB Disease No Past Surgical HX: Previous Surgery?Y NECK X 2 R ANKLE STENTSx2 Allergies Coded Allergies: No Known Allergies (04/16/17) Home medications: Active Scripts Lisinopril 10 MG PO BID #60 TAB Ref 4 Prov: 08/14/17 Isosorbide Mononitrate (Isosorbide Mononitrate ER) 30 MG PO DAILY #30 Ref 4 Prov: 08/14/17 Metoprolol Tartrate (Lopressor) 50 MG PO BID #60 TAB Ref 4 Prov: 08/14/17 Furosemide (Furosemide 40MG) 40 MG PO DAILY #30 TAB Ref 4 Prov: 08/14/17 POTASSIUM CHL (Potassium Chloride) 40 MEQ PO BID #30 Ref 4 Prov: 08/14/17 ASPIRIN (Aspirin) 81 MG PO DAILY #100 Ref 2 Prov: 08/14/17 Atorvastatin Calcium (Lipitor 40MG) 40 MG PO QHS #30 TAB Ref 4 Prov: 08/14/17 NITROGLYCERIN (Nitrostat) 0.4 MG SL [id number] PRN CHEST PAIN #1 BOTTLE Ref 2 Prov: 08/14/17 Temazepam (Restoril 15MG) 15 MG PO QHSP PRN SLEEP #30 CAPSULE Prov: 08/14/17 Prasugrel HCl (Effient) 10 MG PO DAILY #30 TAB Ref 4 Prov: 08/14/17 Discontinued Reported Medications Calcium Carbonate/Simethicone (Yaneli-[place] Heartburn+Gas) 1 EACH PO BID PRN GAS No Home Medications (NO HOME MEDICATIONS) 1 EACH XX ONCE Current Medications: Current Medications Aspirin 81 MG QHS PO (CKD) Atorvastatin Calcium 40 MG QHS PO Temazepam 15 MG QHS PO Furosemide 20 MG DAILY PO (CAN) Lisinopril 10 MG DAILY PO Metoprolol Tartrate 25 MG BID PO Prasugrel 10 MG DAILY PO Influenza Virus Vaccine Quadrival 0.5 ML PRN PRN IM Nicotine 21 MG DAILYP PRN TD Sodium Chloride 1,000 ML .Q20H IV Iopamidol 100 ML ONCE ONE IV (DC) Sodium Chloride 10 ML ONCE ONE IV (DC) Sodium Chloride 40 ML ONCE ONE IV (DC) Sodium Chloride 10 ML PRN PRN IV Sodium Chloride 1,000 ML .Q1H1M IV (DC) Sodium Chloride 10 ML PRN PRN IV Sodium Chloride 1,000 ML .STK-MED ONE IV (DC) Immunization HX DT/Tetanus NOT SURE Pneumonia Never Had TB Test in last year No Family history Family HX Family Hx Insignificant No Diabetes Yes CAD Yes Hypertension Yes Hyperlipidemia No Cancer No TB No Social Hx: Smoking HX Tobacco Yes Type Cigarettes Packs/day < 1 PACK Are you/the child exposed to second-hand smoke: Yes Alcohol Alcohol: No Hx of Drug Use Drug Use? No Review of systems: Constitutional weakness. Respiratory SOB with excertion. Cardiovascular No no symptoms reported, No chest pain Gastrointestinal/Abdominal No no symptoms reported Genitourinary No: no symptoms reported. Musculoskeletal back pain. Neurological No: no symptoms reported. Exam: Admission Vital Signs: 1ST Vital Signs Result Date Time Pulse Ox 96 08/14 1513 B/P 78/52 08/14 1513 Temp 97.8 08/14 151 Pulse 81 08/14 1513 Resp 20 08/14 151 O2 Delivery ROOM AIR 08/14 183 Last Vital Signs: Vital Signs Result Date Time Pulse Ox 98 08/15 825 B/P 106/66 08/15 825 O2 Delivery ROOM AIR 08/15 825 Temp 97.9 08/15 825 Pulse 64 08/15 825 Resp 16 08/15 825 Exam General appearance: alert, awake, no acute distress Neck: no carotid bruit, no JVD Cardiovascular: regular rate & rhythm Respiratory: decreased breath sounds generally without rales or wheezing. ABD: soft, no tenderness Extremities: moves all, no peripheral edema Neuro: alert, intact, oriented Laboratory data: Laboratory Tests 08/15/17 0750: Sodium 137, Potassium 4.2, Chloride 102, Carbon Dioxide 27, BUN 21 H, Creatinine 1.2, Estimated Creat Clear 67, Estimated GFR (MDRD) 62, Glucose 171 H, Calcium 9.0, WBC 8.5, RBC 4.10 L, Hgb 13.3 L, Hct 40.7 L, MCV 99.3 H, RDW 14.4, Plt Count 269, Gran % 75.0, Gran # 6.4, Lymphocytes % 20.4, Monocytes % 4.6, Lymphocytes # 1.7, Monocytes # 0.4, PUBS MCHC 32.7, MCH 32.4 H 08/14/17 1520: Sodium 135 L, Potassium 5.5 H, Chloride 101, Carbon Dioxide 24, BUN 24 H, Creatinine 1.6 H, Estimated Creat Clear 52, Estimated GFR (MDRD) 44, Glucose 136 H, Calcium 9.3, Total Bilirubin 0.5, AST 16, ALT 30, Alkaline Phosphatase 82, Creatine Kinase 45, CK-MB (CK-2) Rel Index 1.1, CK and CKMB Interp 0.5, Troponin I 0.62 H, Total Protein 7.3, Albumin 3.3 L, Globulin 4.0 H, Albumin/ Globulin Ratio 0.8 L, WBC 11.2 H, RBC 4.43 L, Hgb 14.6, Hct 43.4, MCV 97.9 H , RDW 12.9, Plt Count 403, MPV 7.4, Gran % 77.1, Gran # 8.6 H, Lymphocytes % 14.8, Monocytes % 6.3, Eosinophils % 1.2, Basophils % 0.6, Lymphocytes # 1.7, Monocytes # 0.7, Eosinophils # 0.1, Basophils # 0.1, PUBS MCHC 33.8, MCH 33.1 H Plan: Assessment: 1. Hypotension, symptomatic. 2. Recent myocardial infarction with subsequent coronary artery stenting, clinically stable. 3. Hyperlipidemia, on statin therapy 4. Tobacco use, patient quit last week 5. Hyperkalemia, resolved Recommendations: 1. Reduce beta david to 25 mg twice a day. 2. Reduce lisinopril to 10 mg daily. 3. Continue dual antiplatelet therapy. 4. Discontinue isosorbide. Patient to use sublingual nitroglycerin as needed. 5. Repeat troponin to ensure trending down from procedure last week. 6. Have patient ambulate in the hallway today. If blood pressure stable then could be discharged home later today with follow-up next week. at 0848
[2017-08-15 09:05] VITALS: BP 106/66
--- NOTE | 2017-08-15 09:38 | HISTORY AND PHYSICAL REPORT ---
History and Physical (FCA) Date of admission: 08/14/17 Chief complaint: near syncopy History: History of Present Illness: History of present illness: Mr Leach is a 61-year-old white male recently admitted for myocardial infarction with subsequent cardiac catheterization and coronary artery stenting and discharged home yesterday morning. After leaving here the patient bought some groceries and was attempting to take his groceries inside his home when he became extremely weak and had a feeling of "like my head was going to explode." He stated that he thought he would . He was SOB, diaphoretic, nauseated, and he hurt from his neck to the top of his head. His brother brought him to the hospital ER. With evaluation in the emergency department systolic pressure was noted to be in the 70s. He was found to still be wearing nitroglycerin paste from his discharge yesterday morning. Patient denied any chest pain. He stated that he had not taken any further medication since his hospital discharge yesterday morning and that he had not smoked. IV fluids were started in the emergency department and the patient is feeling better at this time. Cardiology was consulted. Past Medical History: Medical History: CAD? Yes Angina: No AR: Yes Hypertension? No Hyperlipidemia? No CHF? No DVT? No PE? No COPD? No Asthma? No Anemia? No GERD? No Gastric ulcers? No GI Bleed? No Hernia? No Thyroid Problems? No Hypothyroidism? No CVA? No Seizures? No Diabetes? No Renal Insuffiency? No UTI? No Stones? No BPH? No GB Disease: No Nephritic Syndrome? No Asplenia? No Hepatitis? No Sickle Cell Disease? No Arthritis? No Migraines? No Cataracts? No Glaucoma? No MRSA? No HIV? No TB? No Anxiety? No Depression? No Cancer? No More? No Additional hx: neck pain Surgical history: Previous Surgery?Y NECK X 2 R ANKLE STENTSx2 Medications: Active Scripts Lisinopril 10 MG PO BID #60 TAB Ref 4 Prov: 08/14/17 Isosorbide Mononitrate (Isosorbide Mononitrate ER) 30 MG PO DAILY #30 Ref 4 Prov: 08/14/17 Metoprolol Tartrate (Lopressor) 50 MG PO BID #60 TAB Ref 4 Prov: 08/14/17 Furosemide (Furosemide 40MG) 40 MG PO DAILY #30 TAB Ref 4 Prov: 08/14/17 POTASSIUM CHL (Potassium Chloride) 40 MEQ PO BID #30 Ref 4 Prov: 08/14/17 ASPIRIN (Aspirin) 81 MG PO DAILY #100 Ref 2 Prov: 08/14/17 Atorvastatin Calcium (Lipitor 40MG) 40 MG PO QHS #30 TAB Ref 4 Prov: 08/14/17 NITROGLYCERIN (Nitrostat) 0.4 MG SL [id number] PRN CHEST PAIN #1 BOTTLE Ref 2 Prov: 08/14/17 Temazepam (Restoril 15MG) 15 MG PO QHSP PRN SLEEP #30 CAPSULE Prov: 08/14/17 Prasugrel HCl (Effient) 10 MG PO DAILY #30 TAB Ref 4 Prov: 08/14/17 Discontinued Reported Medications Calcium Carbonate/Simethicone ([place] Heartburn+Gas) 1 EACH PO BID PRN GAS No Home Medications (NO HOME MEDICATIONS) 1 EACH XX ONCE Allergies: Coded Allergies: No Known Allergies (04/16/17) Family History: Family history: Postive for: CAD, DM. Social History: Smoking Hx Tobacco: Yes (has not smoke x 1 week) Smoker: Current Every Day Smoker Type: Cigarettes Packs/day: < 1 Pack Are you exposed to second hand Yes Alcohol: Alcohol: No Hx of Drug Use: Drug Use? No Review of Systems: Constitutional Positive for: weak. ENT Positive for: sinus problems. No: ear ache, sore throat. Cardiovascular No: chest pain, edema, palpitations. Respiratory Positive for: shortness of air, non-productive. GI No: GERD, abdominal pain, constipation, diarrhea, hematemeis, hematochezia, melena, nausea, vomitting. (male) No: frequency, hematuria. Neurological Positive for: dizziness, headache, light headed, weakness. No: confusion, seizure, syncope. Musculoskeletal Positive for: joint pain (neck), neck pain. No: extremity pain. Physical Exam: Vital signs: Vital Signs Date Time Temp Pulse Resp B/P Pulse O2 O2 Flow FiO2 Ox Delivery Rate 08/15 0905 97.9 64 16 106/66 98 08/15 0825 97.9 64 16 106/66 98 ROOM AIR 08/15 0442 98.2 63 20 108/72 96 ROOM AIR 08/14 2130 96.9 90 20 122/85 96 08/14 1928 98.2 81 18 114/66 100 ROOM AIR 08/14 1855 96.9 90 20 122/85 96 ROOM AIR 08/14 1832 72 08/14 1832 97.8 72 20 105/80 08/14 1832 98 ROOM AIR 08/14 1828 72 20 105/80 98 08/14 1816 72 20 112/70 98 08/14 1734 80 20 104/68 99 08/14 1640 64 20 98/60 96 08/14 1513 97.8 81 20 78/52 96 1ST Vital Signs Result Date Time Pulse Ox 96 08/14 1513 B/P 78/52 08/14 1513 Temp 97.8 08/14 151 Pulse 81 08/14 1513 Resp 20 08/14 1513 O2 Delivery ROOM AIR 08/14 1832 Exam: General appearance: alert, no acute distress Eyes: anicteric, pupils reactive to light ENT: mucous membranes moist, teeth/gums abnormal (missing/broken teeth) Neck: no carotid bruit, full range of motion, lymphadenopathy (absent), thyroid (normal) Cardiovascular: regular rate & rhythm Respiratory: few scattered rhonchi ABD: non-distended, soft, no tenderness, bowel sounds present Extremities: no peripheral edema, no calf tenderness Neuro: alert, oriented, speech clear Lab data: Labs: Laboratory Tests 08/15/17 0750: Sodium 137, Potassium 4.2, Chloride 102, Carbon Dioxide 27, BUN 21 H, Creatinine 1.2, Estimated Creat Clear 67, Estimated GFR (MDRD) 62, Glucose 171 H, Calcium 9.0, WBC 8.5, RBC 4.10 L, Hgb 13.3 L, Hct 40.7 L, MCV 99.3 H, RDW 14.4, Plt Count 269, Gran % 75.0, Gran # 6.4, Lymphocytes % 20.4, Monocytes % 4.6, Lymphocytes # 1.7, Monocytes # 0.4, PUBS MCHC 32.7, MCH 32.4 H 08/14/17 1520: Sodium 135 L, Potassium 5.5 H, Chloride 101, Carbon Dioxide 24, BUN 24 H, Creatinine 1.6 H, Estimated Creat Clear 52, Estimated GFR (MDRD) 44, Glucose 136 H, Calcium 9.3, Total Bilirubin 0.5, AST 16, ALT 30, Alkaline Phosphatase 82, Creatine Kinase 45, CK-MB (CK-2) Rel Index 1.1, CK and CKMB Interp 0.5, Troponin I 0.62 H, Total Protein 7.3, Albumin 3.3 L, Globulin 4.0 H, Albumin/ Globulin Ratio 0.8 L, WBC 11.2 H, RBC 4.43 L, Hgb 14.6, Hct 43.4, MCV 97.9 H , RDW 12.9, Plt Count 403, MPV 7.4, Gran % 77.1, Gran # 8.6 H, Lymphocytes % 14.8, Monocytes % 6.3, Eosinophils % 1.2, Basophils % 0.6, Lymphocytes # 1.7, Monocytes # 0.7, Eosinophils # 0.1, Basophils # 0.1, PUBS MCHC 33.8, MCH 33.1 H Radiology results: Results: 07/14/17 CTA of abdomen/pelvis and chest/thoracic IMPRESSION No aortic dissection. No focal hemorrhage or fluid collection Extensive atheromatous plaque throughout the abdominal aorta. Moderate Circumferential plaque throughout the descending aorta Aneurysmal dilatation lower abdominal aorta, up to 4.3 cm external diameter Increasing prominent circumferential atheromatous plaque with the inferiorly into the abdominal aorta, becoming most pronounced at the infrarenal region. Roughly 50% stenosis of the lumen in some areas here. . Mild aneurysmal dilatation at origins of the iliac arteries bilaterally, with the generous circumferential intraluminal atheromatous continuing to the distal aorta and into the iliac artery origins... Kidneys enhance bilaterally with estimate roughly 30-40% stenosis origin of the renal arteries Celiac artery & SMA have,, common origin but appear widely patent. No bowel wall thickening Liquid stool right colon distal small bowel could reflect developing diarrhea or enteritis possibly?. Diagnosis(es): 1. Hypotension 2. CAD (coronary artery disease) 3. Elevated troponin 4. Renal insufficiency 5. Hypovolemia Plan: med adjustment as per cardiology; benton MILLARD'ed for now; gentle hydration. AM labs show normal kidney function and K+; repeat cardiac enzymes are pending at 0937
[2017-08-15 15:52] VITALS: BP 104/67
[2017-08-15 19:32] VITALS: BP 113/63
[2017-08-15 19:40] VITALS: BP 113/63
[2017-08-16 00:14] VITALS: BP 138/82
[2017-08-16 04:52] VITALS: BP 135/75
[2017-08-16 08:00] VITALS: BP 107/69
--- NOTE | 2017-08-16 08:20 | ACUTE CARE PROGRESS NOTE (QUA) ---
Progress Notes Subjective Date 08/16/17 Time 0813 Note worried about himself; did not sleep very well; neck is hurting; does not want to take sleeping pill; denies CP; SOB with walking; some dizziness after his shower yesterday; states his BP was 90/-- which is not docmented; eating and feels full; voiding QS; has sinus drainage and coughs when he lies down Objective Findings Laboratory Tests 08/15/17 1212: Creatine Kinase 36 L, CK-MB (CK-2) Rel Index 1.4, CK and CKMB Interp < 0.5, Troponin I 0.30 H Vital Signs Date Time Temp Pulse Resp B/P Pulse O2 O2 Flow FiO2 Ox Delivery Rate 08/16 0452 98.4 66 16 135/75 99 ROOM AIR 08/16 0014 98.0 61 20 138/82 99 ROOM AIR 08/15 1940 98.1 71 18 113/63 98 08/15 1932 98.1 71 18 113/63 98 ROOM AIR 08/15 1552 99.4 64 16 104/67 98 ROOM AIR 08/15 0905 97.9 64 16 106/66 98 08/15 0825 97.9 64 16 106/66 98 ROOM AIR Current Medications Aspirin 81 MG QHS PO (DC) Atorvastatin Calcium 40 MG QHS PO (DC) Patient Own Medication 1 UNIT QHS PO Patient Own Medication 1 UNIT QHS PO Temazepam 15 MG QHS PO Patient Own Medication 0.5 UNIT BID PO Patient Own Medication 1 UNIT DAILY PO Patient Own Medication 1 UNIT DAILY PO Lisinopril 10 MG DAILY PO (DC) Metoprolol Tartrate 25 MG BID PO (DC) Prasugrel 10 MG DAILY PO (DC) Influenza Virus Vaccine Quadrival 0.5 ML PRN PRN IM Nicotine 21 MG DAILYP PRN TD Sodium Chloride 1,000 ML .Q20H IV Sodium Chloride 10 ML PRN PRN IV (DC) Sodium Chloride 10 ML PRN PRN IV (DC) 08/15 1500 08/15 2300 08/16 0700 Intake Total 1579 994 560 Output Total 700 725 Balance 1579 294 -165 Intake, IV 499 514 560 Intake, Oral 1080 480 Output, Urine 700 725 Last VS-Temp:98.4 B/P:135/75 Pulse:66 Resp:16 SaO2:99 ROOM AIR Last weight lbs:162 oz:6 K.653 Method:Bed Scales Exam General appearance: alert, active, no acute distress, sitting on bedside eating breakfast Cardiovascular: regular rate & rhythm Respiratory: CTAB A&P ABD: soft, no tenderness, bowel sounds present Extremities: moves all, no peripheral edema, no calf tenderness Neuro: alert, oriented Assessment/Plan Problem List 1. Hypotension 2. CAD (coronary artery disease) 3. Elevated troponin 4. Renal insufficiency 5. Hypovolemia Patient condition Improved Plan: continue current care, meds as per cardiology This inpt stay is expected to cross 2 MNs from start of care No at [id number]
[2017-08-16 08:44] VITALS: BP 107/69
--- NOTE | 2017-08-16 09:27 | ACUTE CARE PROGRESS NOTE (QUA) ---
Progress Notes Subjective Date 08/16/17 Time 09 Note 61 yo WM in chair in NAD. Feeling better but relates recurrent low BP last evening "into the 90's" and is concerned about going home. He states he has no way of getting back to hospital if needed. Objective Findings Last VS-Temp:98.1 B/P:107/69 Pulse:82 Resp:18 SaO2:99 ROOM AIR Last weight lbs:162 oz:6 K.653 Method:Bed Scales Exam General appearance: alert, awake, no acute distress Cardiovascular: regular rate & rhythm Respiratory: clear to auscultation Extremities: moves all, no peripheral edema Neuro: alert, intact, oriented Reviewed: medications, vital signs, lab results Assessment/Plan Problem List 1. Hypotension Assessment/Plan: Improved with change in meds and IVF. 2. CAD (coronary artery disease) Assessment/Plan: clinically stable on current meds. 3. Elevated troponin 4. Renal insufficiency 5. Hypovolemia Patient condition Stable Plan: Pt to ambulate in butt today. Continue current meds unless recurrent hypotension. This inpt stay is expected to cross 2 MNs from start of care No at [id number]
[2017-08-16] MEDS ORDERED: FUROSEMIDE20 MG PO (14:51)
[2017-08-16] MEDS ORDERED: METOPROLOL 25 M25 MG PO (14:51)
[2017-08-16] MEDS ORDERED: LISINOPRIL 10MG10 MG PO (14:52)
[2017-08-16 16:05] VITALS: BP 115/76
--- NOTE | 2017-08-18 09:56 | DISCHARGE SUMMARY STANDARD ---
Discharge Summary (FCA2) Date of admission: 08/14/17 Date of discharge: 08/16/17 Problem List: 1. Hypotension 2. CAD (coronary artery disease) 3. Elevated troponin 4. Renal insufficiency 5. Hypovolemia History of present illness: Mr Leach is a 61-year-old white male recently admitted for myocardial infarction with subsequent cardiac catheterization and coronary artery stenting and discharged home AM of 08/14/17. After leaving [facility] the patient bought some groceries and was attempting to take his groceries inside his home when he became extremely weak and had a feeling of "like my head was going to explode." He stated that he thought he would . He was SOB, diaphoretic, nauseated, and he hurt from his neck to the top of his head. His brother brought him back to [facility] ER. With evaluation in the emergency department systolic pressure was noted to be in the 70s. He was found to still be wearing nitroglycerin paste from his discharge. Patient denied any chest pain. He stated that he had not taken any further medication since his hospital discharge and that he had not smoked. IV fluids were started in the emergency department and he was then admitted. Cardiology was consulted. Exam on admission: Vital Signs Date Time Temp Pulse Resp B/P Pulse O2 O2 Flow FiO2 Ox Delivery Rate 08/15 0905 97.9 64 16 106/66 98 08/15 0825 97.9 64 16 106/66 98 ROOM AIR 08/15 0442 98.2 63 20 108/72 96 ROOM AIR 08/14 2130 96.9 90 20 122/85 96 08/14 1928 98.2 81 18 114/66 100 ROOM AIR 08/14 1855 96.9 90 20 122/85 96 ROOM AIR 08/14 1832 72 08/14 1832 97.8 72 20 105/80 08/14 1832 98 ROOM AIR 08/14 1828 72 20 105/80 98 08/14 1816 72 20 112/70 98 08/14 1734 80 20 104/68 99 08/14 1640 64 20 98/60 96 08/14 1513 97.8 81 20 78/52 96 1ST Vital Signs Result Date Time Pulse Ox 96 08/14 1513 B/P 78/52 08/14 1513 Temp 97.8 08/14 1513 Pulse 81 08/14 1513 Resp 20 08/14 1513 O2 Delivery ROOM AIR 08/14 1832 Exam: General appearance: alert, no acute distress Eyes: anicteric, pupils reactive to light ENT: mucous membranes moist, teeth/gums abnormal (missing/broken teeth) Neck: no carotid bruit, full range of motion, lymphadenopathy (absent), thyroid (normal) Cardiovascular: regular rate & rhythm Respiratory: few scattered rhonchi ABD: non-distended, soft, no tenderness, bowel sounds present Extremities: no peripheral edema, no calf tenderness Neuro: alert, oriented, speech clear Hospital Course: On admission patient received gentle hydration with IVF at 50ml/hour. Cardiac meds were adjusted. Patient did feel better, ambulated without problems, and maintained a satisfactory BP. He denied CP and SOB. On 08/16/17 he was stable for discharge. Laboratory data this visit: 08/14/17 1520: Sodium 135 L, Potassium 5.5 H, Chloride 101, Carbon Dioxide 24, BUN 24 H, Creatinine 1.6 H, Estimated Creat Clear 52, Estimated GFR (MDRD) 44, Glucose 136 H, Calcium 9.3, Total Bilirubin 0.5, AST 16, ALT 30, Alkaline Phosphatase 82, Creatine Kinase 45, CK-MB (CK-2) Rel Index 1.1, CK and CKMB Interp 0.5, Troponin I 0.62 H, Total Protein 7.3, Albumin 3.3 L, Globulin 4.0 H, Albumin/ Globulin Ratio 0.8 L, WBC 11.2 H, RBC 4.43 L, Hgb 14.6, Hct 43.4, MCV 97.9 H , RDW 12.9, Plt Count 403, MPV 7.4, Gran % 77.1, Gran # 8.6 H, Lymphocytes % 14.8, Monocytes % 6.3, Eosinophils % 1.2, Basophils % 0.6, Lymphocytes # 1.7, Monocytes # 0.7, Eosinophils # 0.1, Basophils # 0.1, PUBS MCHC 33.8, MCH 33.1 H 08/15/17 0750: Sodium 137, Potassium 4.2, Chloride 102, Carbon Dioxide 27, BUN 21 H, Creatinine 1.2, Estimated Creat Clear 67, Estimated GFR (MDRD) 62, Glucose 171 H, Calcium 9.0, WBC 8.5, RBC 4.10 L, Hgb 13.3 L, Hct 40.7 L, MCV 99.3 H, RDW 14.4, Plt Count 269, Gran % 75.0, Gran # 6.4, Lymphocytes % 20.4, Monocytes % 4.6, Lymphocytes # 1.7, Monocytes # 0.4, PUBS MCHC 32.7, MCH 32.4 H 08/15/17 1212: Creatine Kinase 36 L, CK-MB (CK-2) Rel Index 1.4, CK and CKMB Interp < 0.5, Troponin I 0.30 H Imagin07/14/17 CTA of abdomen/pelvis and chest/thoracic IMPRESSION No aortic dissection. No focal hemorrhage or fluid collection Extensive atheromatous plaque throughout the abdominal aorta. Moderate Circumferential plaque throughout the descending aorta Aneurysmal dilatation lower abdominal aorta, up to 4.3 cm external diameter Increasing prominent circumferential atheromatous plaque with the inferiorly into the abdominal aorta, becoming most pronounced at the infrarenal region. Roughly 50% stenosis of the lumen in some areas here. . Mild aneurysmal dilatation at origins of the iliac arteries bilaterally, with the generous circumferential intraluminal atheromatous continuing to the distal aorta and into the iliac artery origins... Kidneys enhance bilaterally with estimate roughly 30-40% stenosis origin of the renal arteries Celiac artery & SMA have,, common origin but appear widely patent. No bowel wall thickening Liquid stool right colon distal small bowel could reflect developing diarrhea or enteritis possibly?. Discharge medications: Stop taking the following medications: Lisinopril (Lisinopril) 10 MG TABLET ORAL TWICE A DAY Qty = 60 Metoprolol Tartrate (Lopressor) 50 MG TABLET ORAL TWICE A DAY Qty = 60 Furosemide (Furosemide 40MG) 40 MG TABLET ORAL DAILY Qty = 30 POTASSIUM CHL (Potassium Chloride) 20 MEQ TAB.ER.PRT ORAL TWICE A DAY Qty = 30 Continue taking these medications: Isosorbide Mononitrate (Isosorbide Mononitrate ER) 30 MG TAB.ER.24H 30 MILLIGRAM ORAL DAILY Qty = 30 ASPIRIN (Aspirin) 81 MG TAB.CHEW 81 MILLIGRAM ORAL DAILY Qty = 100 Atorvastatin Calcium (Lipitor 40MG) 40 MG TABLET 40 MILLIGRAM ORAL AT BEDTIME NIGHTLY Qty = 30 NITROGLYCERIN (Nitrostat) 0.4 MG TAB.SUBL 0.4 MILLIGRAM SUBLINGUAL EVERY FIVE MINUTES NEEDED as needed for CHEST PAIN Qty = 1 Temazepam (Restoril 15MG) 15 MG CAPSULE 15 MILLIGRAM ORAL AT BEDTIME NEEDED as needed for SLEEP Qty = 30 Prasugrel HCl (Effient) 10 MG TABLET 10 MILLIGRAM ORAL DAILY Qty = 30 Instructions: PO Start taking the following new medications: Furosemide (Furosemide) 20 MG TABLET 20 MILLIGRAM ORAL DAILY Qty = 30 Refills = 2 Metoprolol Tartrate (Metoprolol 25MG) 25 MG TABLET 25 MILLIGRAM ORAL TWICE A DAY Qty = 60 Refills = 2 LISINOPRIL (Lisinopril) 10 MG TABLET 10 MILLIGRAM ORAL DAILY Qty = 30 Refills = 2 Disposition: Discharged to home in stable and satisfactory condition. Follow up: [address] Moises Naidu Activity: Limited activity Diet: Low Fat/Low Cholesterol Discharge to: HOME Agency needed? N Meds to be continued as per reconciliation sheet at [phone]
== END 2017-08-16 16:08 | disposition home or self-care (01) ==
LOC: ER 15:11 → 2ND 17:48
PROVIDERS: Emergency Medicine; Family Medicine
DX: I95.9 Hypotension, unspecified (principal); E86.1 Hypovolemia; I25.10 Atherosclerotic heart disease of native coronary artery without angina pectoris; I21.3 ST elevation (STEMI) myocardial infarction of unspecified site; Z82.49 Family history of ischemic heart disease and other diseases of the circulatory system; F17.210 Nicotine dependence, cigarettes, uncomplicated; N28.9 Disorder of kidney and ureter, unspecified; Z95.5 Presence of coronary angioplasty implant and graft; G89.29 Other chronic pain; M54.2 Cervicalgia; Z23 Encounter for immunization; E87.5 Hyperkalemia
CPT/HCPCS: G0378; Q9967

== ENCOUNTER → 2017-09-12 | Outpatient (CLI) | payer MEDICARE, MEDICAID ==
[~2017-09-12] MED LIST changes: +FUROSEMIDE20 MG PO; +LISINOPRIL 10MG10 MG PO; +METOPROLOL 25 M25 MG PO
--- NOTE | 2017-09-14 15:06 | RADIOLOGY REPORT PS360 ---
History and Indications: Coronary disease, history of CO, A. fib, hypertension,, tobacco use, shortness of breath and syncope. Procedure: Patient received a 0.4 mg of Lexiscan, resting heart rate was 73 bpm, resting blood pressure 122/72, with Lexiscan maximum heart rate achieved was 105 bpm, which is less than 85% of the maximum predicted heart rate and a blood pressure was 106/75. With Lexiscan patient complained of nausea and stomach discomfort. Electrocardiogram: Resting electrocardiogram showed sinus rhythm right bundle branch block, with Lexiscan there is less than 1.[address] segment depression noted from the baseline EKG. The EKG portion of the Lexiscan Myoview is nondiagnostic. Cardiac stress and resting SPECT images: Cardiac stress and rest SPECT images were obtained using technetium 99 Myoview 10.6 millicuries at rest and 32.6 mCi at stress, gated SPECT further analysis of segmental wall motion and calculation of the ejection fraction also done. Cardiac stress and rest SPECT images show decreased tracer activity in the inferoseptal, inferior and infero apical wall which improves on the resting images suggestive of reversible ischemia in that area. Computer derived ejection fraction is 51% with mild. And inferoseptal wall hypokinesis, right ventricle is normal size and contractility. Conclusion: 1. The EKG portion of the Lexiscan Myoview is nondiagnostic. 2. Scintigraphic evidence of mild reversible ischemia involving the inferior, inferoseptal and infero apical wall. Computer derived ejection fraction is 51% with segmental wall motion abnormality as described above, right ventricle is normal size and contractility. 3. Abnormal Lexiscan Myoview study.
== END ==
LOC: RAD 11:36
DX: I25.10 Atherosclerotic heart disease of native coronary artery without angina pectoris (principal); I11.9 Hypertensive heart disease without heart failure; I10 Essential (primary) hypertension; R51 Headache; E78.5 Hyperlipidemia, unspecified; R06.09 Other forms of dyspnea
CPT/HCPCS: A9502; J2785

== ENCOUNTER → 2017-09-27 | Day surgery (SDC) | payer MEDICARE, MEDICAID ==
[2017-09-27 08:04] LABS: BUN 13 mg/dL (7-18); GFR (ESTIMATED) 56 ML/MIN (>60)
[2017-09-27 08:05] LABS: HEMOGLOBIN 14.9 g/dL (14.1-18.0); LYMPH # 2.3 K/mm3 (0.7-4.5); LYMPH % 26.4 % (10-50)
--- NOTE | 2017-09-27 10:58 | RADIOLOGY REPORT PS360 ---
CARDIAC CATHETERIZATION DATE OF CATHETERIZATION:09/27/2017 9:07 AM PROCEDURES: 1. Left heart catheterization 2. Left ventriculogram 3. Selective coronary angiogram 4. Drug-eluting stent deployment to the ostial proximal mid dominant circumflex artery extending into the large second obtuse marginal INDICATION FOR TEST: 1. Abnormal high risk Myoview 2. Coronary artery disease 3. Angina pectoris class III and IV Informed consent was obtained prior to the procedure. COMPLICATIONS: None ESTIMATED BLOOD LOSS: Less than 10 ml. TECHNIQUE: One percent lidocaine used to anesthetize the right anterior aspect of the wrist. The right radial artery was accessed via the Seldinger technique. A 6 [place] sheath was placed in the right radial artery. 2.5 mg of verapamil, 800 mcg of nitroglycerin and 5000 U Heparin were given through the arterial sheath. The trap catheter was also used to perform left heart catheterization left ventriculogram and selective coronary angiogram. At the end of the diagnostic procedure an additional 3000 units of heparin was administered intravenously to give an ACT of 281 seconds. An additional 3000 units of heparin was administered intravenously. An [employer] left guide catheter was used intubate the left main artery and the BMW wire was placed into the circumflex artery and down into the second obtuse marginal artery. A 3 mm x 26 mm drug-eluting [place] resolute stent was deployed at 20 antonio reducing the stenosis to 0%. A 2.5 x 38 mm resolute Sergio stent was in placed distal to the stent going into the second obtuse marginal artery. Residual stenosis was present distal to the stent therefore a 2.25 x 12 mm resolute Sergio stent was deployed at 16 antonio. The balloon was brought back and deployed at 24 antonio to post dilate and mesh the stents. At the end of the procedure and additional nitroglycerin was administered. Repeat angiography demonstrated ADRIAN-3 flow down the circumflex artery before and after the procedure. With excellent angiographic results the apparatus was removed the sheath was removed good hemostasis was achieved using TR banding patient transferred the postop holding area in stable condition. The ACT was out of range ANGIOGRAPHIC RESULTS: 1. The left main artery normal 2. The left anterior descending artery has proximal 20-30% stenoses mid vessel 30% stenoses and a distal concentric 80-90% stenosis at a 2 mm segment in the distal LAD. 3. The circumflex artery is a dominant vessel and has an ostial 80-90% eccentric stenosis followed by an additional 50% then 70% stenosis. The first obtuse marginal artery is a large vessel and has an ostial 60% stenosis while the second obtuse marginal artery has a proximal concentric 80% stenosis. The third obtuse marginal artery has proximal 30% stenosis 4. The right coronary artery is a codominant vessel and has a stent in the ostial proximal segment which is widely patent free of in-stent restenosis. Distal to the stent the mid segment has a 40% stenosis. Distal to the RV marginal branch is a stent which is widely patent with excellent proximal and distal transitioning. Distally there are 50% stenoses. The distal marginal branch has a long concentric 80-90% stenosis at a 1.5 mm diameter vessel. 5. The GAMEZ ventriculogram reveals normal 65% 6. The left ventricular end-diastolic pressure 15 mmHg IMPRESSION: 1. Coronary artery disease as described above 2. Severe to critical disease in the codominant ostial proximal circumflex artery extending into the second obtuse marginal artery 3. Successful stenting of the ostial proximal mid codominant circumflex artery with the contiguous stent extending into the large second obtuse marginal artery with severe disease reduced to 0% with 3 contiguous drug-eluting stents 4. Persistent stenosis in the first obtuse marginal artery 5. Persistent disease in the right coronary artery which is too small for intervention 6. Normal ejection fraction 7. Normal to mildly elevated LVEDP PLAN: 1. Effient and aspirin 2. Antianginal medications 3. LDL less than 55 4. Avoidance of tobacco products 5. Risk factor modification 6. Cardiac rehabilitation
[2017-09-27 14:27] VITALS: BP 142/82
== END ==
LOC: CATHLAB 07:18
PROVIDERS: Internal Medicine
PROC: B2111ZZ Fluoroscopy of Multiple Coronary Arteries using Low Osmolar Contrast (ICD-10-PCS; 2017-09-27)
PROC: B2151ZZ Fluoroscopy of Left Heart using Low Osmolar Contrast (ICD-10-PCS; 2017-09-27)
PROC: 027034Z Dilation of Coronary Artery, One Artery with Drug-eluting Intraluminal Device, Percutaneous Approach (ICD-10-PCS; 2017-09-27)
PROC: 4A023N7 Measurement of Cardiac Sampling and Pressure, Left Heart, Percutaneous Approach (ICD-10-PCS; principal; 2017-09-27 08:30)
DX: I25.119 Atherosclerotic heart disease of native coronary artery with unspecified angina pectoris (principal); Z72.0 Tobacco use; R94.39 Abnormal result of other cardiovascular function study; I10 Essential (primary) hypertension
CPT/HCPCS: C1725; C1769; C1876; J1644; Q9967